=== PATIENT | male | born 1965 | race Caucasian/White ===

== ENCOUNTER 2017-05-11 17:27 | Emergency (ER) | payer BC ==
[2017-05-11 18:03] LABS: Hematocrit 30.5 % (42.0-52.0); Hemoglobin 9.9 gm/dL (13.5-18.0); Mean Cell Volume 81.6 fl (78-100); Mean Corpuscular Hemoglobin 26.5 pg (27-31); Mean Corpuscular Hgb Conc 32.5 g/dl (32-36); Mean Platelet Volume 9.7 fl (6.0-9.5); Neutrophil # 2.9 K/mm3 (1.3-6.0); Neutrophil % 67.7 % (42-75.0); Platelet Count 168 K/mm3 (150-450); Red Blood Count 3.74 M/mm3 (4.7-6.0); Red Cell Distribution Width 19.5 % (11.5-14.0); White Blood Count 4.2 K/mm3 (4.0-10.5)
[2017-05-11 18:10] LABS: Urine Appearance Clear; Urine Bilirubin Negative (NEGATIVE); Urine Blood Negative /ul (NEGATIVE); Urine Color Yellow; Urine Ketone Negative (NEGATIVE); Urine Protein Negative (NEGATIVE); Urine Specific Gravity 1.005 SP.GR. (1.005-1.030)
[2017-05-11 18:11] LABS: Urine Bacteria None Seen; Urine Nitrite Negative (NEGATIVE); Urine RBC None Seen /hpf (0-5); Urine Urobilinogen Normal (NORMAL); Urine WBC 0-5 /hpf (0-5)
[2017-05-11 18:15] LABS: Albumin * 3.1 gm/dl (3.4-5.0); Anion Gap 13.3 mmol/L (6.8-13.8); BUN/Creatinine Ratio 6.1 (9.0-21.6); Ca. Corrected For Albumin 8.7 mg/dL (8.4-10.2); Calcium * 8.3 mg/dL (7.9-10.9); Carbon Dioxide 30.8 mmol/L (24-32.6)
[2017-05-11 18:35] LABS: Potassium 2.1 mmol/L (3.4-4.6)
[2017-05-11] MEDS ORDERED: NORMAL SALINE 1,000 ML IV ONE (18:53)
[2017-05-11] MEDS ORDERED: POTASSIUM BICARBONATE/CIT AC 25 MEQ TABLET.EFF PO ONE ×2 (18:58→19:29)
[2017-05-11] MEDS ORDERED: POTASSIUM BICARBONATE/CIT AC 25 MEQ TABLET.EFF ONE ×2 (19:05→19:30)
[2017-05-11 19:15] LABS: Magnesium 1.1 mg/dL (1.2-2.8); Phosphorus 2.7 mg/dL (2.2-4.2)
[2017-05-11] MEDS ORDERED: diphenhydrAMINE HCL 50 MG/ML VIAL IV ONE (19:31)
[2017-05-11] MEDS ORDERED: diphenhydrAMINE HCL 50 MG/ML VIAL ONE (19:32)
--- NOTE | 2017-05-11 21:26 | ERNOTE ---
Abdominal HPI - Narrative Date of Service: 05/11/17 - General Chief Complaint: Abdominal Pain Time Seen by Provider: 05/11/17 18:27 Source: patient, family Exam Limitations: no limitations - Immun/Allergies/Home Medications Immunizatons: IMMUNIZATION HX Immunizations Up to Date Yes History of Influenza Vaccine No Hx Pneumococcal Vaccination No Allergies/Adverse Reactions: Allergies amlodipine Allergy (Intermediate, Verified 05/11/17 17:45) Retained water and bruising Home Medications: HOME MEDICATIONS Aspirin [Aspirin Enteric Coated] 81 mg PO DAILY 07/08/13 [Last Taken Unknown] Chlorthalidone [Hygroton] 25 mg PO DAILY 08/06/15 [Last Taken Unknown] Potassium Chloride [Klor-Con M10] 10 meq PO DAILY 08/07/15 [Last Taken Unknown] Acetaminophen [Tylenol] 500 mg PO QID PRN #30 tablet 08/11/15 [Last Taken Unknown] Pantoprazole Sodium [Protonix] 40 mg PO DAILY@0700 #30 tablet. 08/11/15 [Last Taken Unknown] Potassium Chloride [Potassium Chloride 40 meq/15ml Liquid] 20 meq PO DAILY #7.5 btl 05/11/17 [Last Taken Unknown] - Pain Score Pain Score #1 Pain Score: 7 Abdominal Pain Onset Location: generalized abdomen Pain Radiation: no radiation Pain Score #2 Pain Score: 0 - History of Present Illness Narrative: Patient is a 52 year old male who presents to ED with complaints of constant pain across abdomen without radiation since earlier this morning. States he awoke fine and went to work. States about 0830 ate some eggs for lunch and after eating began to experience "gas like" pain across lower abdomen. States he vomited x 1. Also complains of back pain x 2 weeks and muscle cramps especially leg and back cramps since . Also states he feels more fatigued since . Denies fever, chills. Admits to chronic alcohol abuse , states he drinks a gallon of vodka every 4 days. states that he has chronic low potassium and has been prescribed Potassium pills in which the states "the entire, undissolved pill comes out in his stool". Monitor reading NSR Date (Duration): 05/08/17 Timing: constant, getting worse Quality: moderate Activities at Onset: none Modifying Factors - (Improves): Present: rest Modifying Factors - (Worsens): Present: movement Associated Symptoms: Present: back pain, nausea, vomiting, loss of appetite. Absent: headache, chest pain, neck pain, diaphoresis, diarrhea-gross blood, diarrhea-mucous, fatigue, fever/chills, heartburn, shortness of breath, swelling /mass in abdomen Prior Abdominal Problems: Present: none Review of Systems - Review of Systems Constitutional: Present: no symptoms reported. Absent: recent illness, fever, chills, diaphoresis, weakness, fatigue, malaise, weight loss, fussy, decreased activity level EYE: Present: no symptoms reported. Absent: eye pain, eye discharge, blurred vision, double vision, vision changes ENT: Present: no symptoms reported. Absent: ear pain, ear discharge, pulling on ears, nose pain, nose congestion, nasal drainage, sore throat, throat swelling Respiratory: Present: no symptoms reported. Absent: shortness of breath, cough , orthopnea, wheezing Cardiology: Present: no symptoms reported. Absent: chest pain, palpitations, syncope, edema, claudication Gastrointestinal/Abdominal: Present: nausea, vomiting, abdominal pain, eating less, drinking less. Absent: diarrhea Genitourinary: Present: no symptoms reported Musculoskeletal: Present: back pain, muscle pain. Absent: muscle stiffness, neck pain Skin: Present: no symptoms reported Neurological: Present: no symptoms reported Endocrine: Present: no symptoms reported Hematologic/Lymphatic: Present: no symptoms reported - Patient's Past Medical History Patient History - Medical: Anxiety, Depression, Other Patient History - Cardiac/Respiratory: Hypertension Patient History - Cancer: No Hx of Cancer Patient History - Surgical Procedures: Other Patient History - Other: None - Family History Father Family History - Medical: Other Family History - Cardiac/Respiratory: Hypertension Mother Family History - Medical: No pertinent hx Family History - Cardiac/Respiratory: No pertinent hx - Social History Living Situations: home Abuse History: No History of abuse Psych History: Hx of Anxiety, Hx of Depression Alcohol Use: heavy Drug Use: none - Immunizations Immunizations Up to Date: Yes Hx Pneumococcal Vaccination: No History of Influenza Vaccine: No Physical Exam - Physical Exam General Appearance: Present: wd/wn, alert, no apparent distress Head Exam: Present: normal inspection, no evidence of injury Eye Exam: Normal inspection: bilateral, PERRL: bilateral, EOMI: bilateral Ears, Nose, Throat: Present: normal ENT inspection, normal pharynx. Absent: pharyngeal erythema, pharyngeal swelling, tonsillar exudate, tonsillar swelling , dry mucous membranes Neck: Present: normal inspection, nontender, supple, full range of motion. Absent: lymphadenopathy (R), lymphadenopathy (L) Respiratory: Present: no respiratory distress, normal breath sounds, no accessory muscle use, chest nontender, lungs clear Cardiovascular/Chest: Present: regular rate, rhythm, no murmur, normal peripheral pulses Peripheral Pulses: N=norm/S=strong/W=weak/B=bound/A=absent: Radial (R): Normal, Radial (L): Normal Gastrointestinal/Abdominal: Present: normal bowel sounds, nondistended, soft, no organomegaly, other - tender across lower abdomen Rectal Exam: Present: deferred Male Genitals Exam: Present: deferred Back Exam: Present: normal inspection, normal range of motion, no CVA tenderness , vertebral tenderness Extremity Exam: Present: normal inspection, non-tender, normal range of motion, no edema Neurological Exam: Present: alert, oriented, normal mood/affect, no motor/ sensory deficits Skin Exam: Present: normal color, warm/dry Lymphatic Exam: Present: no adenopathy ED Progress - Results and Orders Patient's Lab Results:: I have reviewed the patient's lab results. - Vital Signs Patient's Vital Signs:: I have reviewed the patient's vital signs. Vital Signs: Vital Signs 05/11/17 05/11/17 05/11/17 17:42 18:18 18:40 Temperature 36.8 C Pulse Rate 95 90 94 Respiratory 18 16 20 Rate Blood Pressure 155/103 151/93 161/105 O2 Sat by Pulse 97 98 98 Oximetry 05/11/17 05/11/17 05/11/17 19:11 19:36 20:12 Temperature Pulse Rate 95 95 92 Respiratory 18 20 20 Rate Blood Pressure 145/100 149/98 141/92 O2 Sat by Pulse 97 97 98 Oximetry 05/11/17 20:53 Temperature 36.9 C Pulse Rate 89 Respiratory 18 Rate Blood Pressure 139/90 O2 Sat by Pulse 96 Oximetry - EKG EKG: NSR EKG read: Reviewed by me - X-Ray X-Ray #1 X-Ray: abdomen Interpretation: Reviewed by me X-ray Comments: Findings: Mild stool is within the realm of normal variability. There are no air-filled dilated loops of bowel suggest obstruction. No free air identified. There is a mild dextroscoliosis to the lumbar spine. IMPRESSION: NO ACUTE ABDOMINAL PATHOLOGY IDENTIFIED. Electronically signed by Marcial Grissom M.D.. - Progress/Reassessment Chief Complaint: Abdominal Pain Progress:: Improved Departure - Departure Clinical Impression: Hypokalemia Nausea & vomiting Qualifiers: Vomiting type: unspecified Vomiting Intractability: unspecified Qualified Code( s): R11.2 - Nausea with vomiting, unspecified Disposition: Home Follow Up Needed Condition: Good Instructions: Nausea, Adult, Hypokalemia, Alcohol Abuse and Nutrition Additional Instructions: Please call primary provider's office tomorrow morning to update office of Potassium level of 2.1 in ED. Stop Potassium tablets and take potassium liquid instead Prescriptions: Potassium Chloride [Potassium Chloride 40 meq/15ml Liquid] 20 meq PO DAILY #7.5 btl
[2017-05-11 21:35] VITALS: BP 124/90
== END 2017-05-11 21:34 | disposition home or self-care (01) ==
LOC: ER 17:27
DX: E87.6 Hypokalemia (principal); R11.2 Nausea with vomiting, unspecified; I10 Essential (primary) hypertension; F41.8 Other specified anxiety disorders

== ENCOUNTER 2019-11-05 03:39 | Inpatient (IN) ==
--- NOTE | 2019-11-05 04:21 | ERNOTE ---
Abdominal HPI - General Chief Complaint: Abdominal Pain Time Seen by Provider: 11/05/19 04:05 Source: patient Exam Limitations: no limitations - Immun/Allergies/Home Medications Immunizatons: IMMUNIZATION HX Immunizations Up to Date Yes History of Influenza Vaccine No Hx Pneumococcal Vaccination No Allergies/Adverse Reactions: Allergies amlodipine Allergy (Intermediate, Verified 06/04/18 04:02) Retained water and bruising Home Medications: HOME MEDICATIONS Omeprazole Magnesium [Prilosec Otc] 20 mg PO DAILY 11/05/19 [Last Taken Unknown] - History of Present Illness Narrative: Patient states he has been getting more and more sick over the past couple of weeks with abdominal pain and distention. Patient admits to drinking up to 1/5 of vodka daily Timing: getting worse Quality: moderate, severe, fullness Review of Systems - Review of Systems Constitutional: Present: fatigue. Absent: recent illness, fever, chills EYE: Absent: vision changes ENT: Present: nose congestion, nasal drainage Respiratory: Present: cough. Absent: shortness of breath Cardiology: Absent: chest pain Gastrointestinal/Abdominal: Present: nausea, eating less, other - black stools. Absent: vomiting, diarrhea Genitourinary: Present: other - orange colored urine for about 2 weeks Musculoskeletal: Absent: muscle pain Skin: Present: change in color Neurological: Present: headache, dizziness/light-headedness Endocrine: Absent: excessive sweating Hematologic/Lymphatic: Absent: easy bruising, easy bleeding Medical History (Last Reviewed 11/05/19 @ 06:48 by Choco Christianson DO) HTN (hypertension) Hypokalemia Surgical History: Surgical History (Last Reviewed 11/05/19 @ 06:48 by Choco Christianson DO) No pertinent past surgical history Social History: (Last Reviewed 11/05/19 @ 06:48 by Choco Christianson DO) Tobacco: Smoking Status: Current every day smoker tobacco type: cigarettes Smoking cigarettes per day: 10 Alcohol: alcohol intake: current Alcohol type: hard liquor alcohol intake frequency: 3 or more drinks per day Substance Use: substance use type: does not use Physical Exam - Physical Exam General Appearance: Present: wd/wn, alert, mild distress - and mildly somnolent Head Exam: Present: normal inspection, no evidence of injury Eye Exam: PERRL: bilateral, Scleral icterus: bilateral Ears, Nose, Throat: Present: normal ENT inspection, normal pharynx Neck: Present: normal inspection, nontender Respiratory: Present: no respiratory distress, no accessory muscle use, lungs clear Cardiovascular/Chest: Present: regular rate, rhythm, no murmur Gastrointestinal/Abdominal: Present: tenderness - Diffuse, abnormal bowel sounds - Hypoactive, distended - Mildly. Absent: guarding, rebound Back Exam: Present: no CVA tenderness Extremity Exam: Present: normal inspection, normal range of motion, no edema Neurological Exam: Present: oriented, normal mood/affect, no motor/sensory deficits Skin Exam: Present: jaundice Lymphatic Exam: Present: no adenopathy Progress - Results and Orders Patient's Lab Results:: I have reviewed the patient's lab results. Results and Orders: Laboratory Tests 11/05/19 11/05/19 11/05/19 04:45 04:45 04:50 WBC 8.4 Hgb 9.2 L Hct 27.3 L Plt Count 191 PT INR (Anticoag Therapy) PTT ([place]) Sodium Potassium Chloride Carbon Dioxide Anion Gap BUN Creatinine Random Glucose Calcium Total Bilirubin AST ALT Alkaline Phosphatase Ammonia Total Protein Albumin Amylase Lipase Urine Color Dark yellow Urine Appearance Slightly cloudy Urine pH 5.5 Ur Specific [place] 1.025 Urine Protein 30 H Urine Glucose (UA) Negative Urine Ketones 15 Urine Blood 5 H Urine Nitrate Negative Urine Bilirubin 6 H Urine Ictotest Positive H Prot Sulfosalicylic Acd 1+ Urine Urobilinogen 2.0 H Ur Leukocyte Esterase Negative Stool Occult Blood Positive H 11/05/19 11/05/19 11/05/19 04:50 04:50 04:50 WBC Hgb Hct Plt Count PT 11.7 H INR (Anticoag Therapy) 1.19 H PTT ([place]) 24.6 Sodium 133 Potassium 2.7 L Chloride 83 L Carbon Dioxide 20.8 L Anion Gap 31.9 H BUN 26 H Creatinine 1.51 H Random Glucose 89 Calcium 8.0 Total Bilirubin 6.5 H AST 449 H ALT 102 H Alkaline Phosphatase 315 H Ammonia 29.0 Total Protein 6.0 L Albumin 2.4 L Amylase 33 Lipase 353 Urine Color Urine Appearance Urine pH Ur Specific [place] Urine Protein Urine Glucose (UA) Urine Ketones Urine Blood Urine Nitrate Urine Bilirubin Urine Ictotest Prot Sulfosalicylic Acd Urine Urobilinogen Ur Leukocyte Esterase Stool Occult Blood - Vital Signs Patient's Vital Signs:: I have reviewed the patient's vital signs. Vital Signs: Vital Signs 11/05/19 03:53 Temperature 36.8 C Respiratory Rate 108 H Blood Pressure 133/90 H O2 Sat by Pulse Oximetry 99 - X-Ray X-Ray #1 X-Ray: abdomen Interpretation: Interp. by me X-ray Comments: Mild to moderate stool retention. No free air, no air-fluid levels no evidence of obstruction. - Progress/Reassessment Chief Complaint: Abdominal Pain Progress Note-Subjective: 11/05/19 06:[address] Mcgraw and she agrees with admission and protonix drip. Departure Clinical Impression: Alcoholic liver disease Gastrointestinal bleed Qualifiers: GI bleed type/associated pathology: gastritis Gastritis type: alcoholic Qualified Code(s): K29.21 - Alcoholic gastritis with bleeding Anemia Qualifiers: Anemia type: other cause Other causes of anemia: acute posthemorrhagic Qualified Code(s): D62 - Acute posthemorrhagic anemia - Departure Disposition: Still a patient Condition: Stable
[2019-11-05 04:54] LABS: Hematocrit 27.3 % (42.0-52.0); Hemoglobin 9.2 gm/dL (13.5-18.0); Mean Cell Volume 113.8 fl (78-100); Mean Corpuscular Hemoglobin 38.3 pg (27-31); Mean Corpuscular Hgb Conc 33.7 g/dl (32-36); Mean Platelet Volume 10.9 fl (8-11.3); Neutrophil # 6.2 K/mm3 (1.3-6.0); Neutrophil % 73.8 % (42-75.0); Platelet Count 191 K/mm3 (150-450); Red Cell Distribution Width 17.9 % (11.5-14.0); White Blood Count 8.4 K/mm3 (4.0-10.5)
[2019-11-05 04:55] LABS: Urine Bilirubin 6 mg/dl (NEGATIVE); Urine Ketone 15 mg/dL (NEGATIVE); Urine Nitrite Negative (NEGATIVE); Urine Protein 30 mg/dL (NEGATIVE); Urine Specific Gravity 1.025 SP.GR. (1.005-1.030); Urine pH 5.5 pH (5.0-7.0)
[2019-11-05 05:04] LABS: Prothrombin Time (Patient) 11.7 Seconds (9.1-10.7)
[2019-11-05 05:07] LABS: INR 1.19 INR (0.92-1.08); Partial Thrombolplastin Time 24.6 Seconds (24-32)
[2019-11-05 05:08] LABS: Albumin * 2.4 gm/dl (3.4-5.0); Anion Gap 31.9 mmol/L (6.8-13.8); BUN/Creatinine Ratio 17.2 (9.0-21.6); Bilirubin, Total 6.5 mg/dL (0.0-1.1); Carbon Dioxide 20.8 mmol/L (24-32.6); Potassium 2.7 mmol/L (3.4-4.6)
[2019-11-05 05:22] LABS: Urine Appearance Slightly Cloudy (CLEAR); Urine Bacteria TRACE; Urine Blood 5 /ul (NEGATIVE); Urine Color Dark Yellow; Urine RBC None Seen /hpf (0-5); Urine WBC None Seen /hpf (0-5)
[2019-11-05] MEDS ORDERED: LORazepam 1 MG TABLET PO PRN (07:04)
[2019-11-05] MEDS ORDERED: LORazepam 2 MG/ML DISP.SYRIN IV PRN ×2 (07:04)
[2019-11-05] MEDS ORDERED: THIAMINE HCL 100 MG/ML VIAL IM STA (07:04)
[2019-11-05] MEDS ORDERED: MULTIVIT INFUSN,ADULT 4,VIT K 10 ML, THIAMINE HCL 100 MG in NORMAL SALINE 1,000 ML IV ONE (07:04)
[2019-11-05] MEDS ORDERED: ENOXAPARIN SODIUM 40 MG/0.4 ML SYRG SC SCH (07:15)
[2019-11-05 07:49] LABS: Hematocrit 25.6 % (42.0-52.0); Hemoglobin 8.5 gm/dL (13.5-18.0); Mean Cell Volume 113.8 fl (78-100); Mean Corpuscular Hemoglobin 37.8 pg (27-31); Mean Corpuscular Hgb Conc 33.2 g/dl (32-36); Mean Platelet Volume 11.2 fl (8-11.3); Neutrophil % 77.4 % (42-75.0); Platelet Count 173 K/mm3 (150-450); Red Blood Count 2.25 M/mm3 (4.7-6.0); White Blood Count 7.7 K/mm3 (4.0-10.5)
[2019-11-05 07:58] LABS: Albumin * 2.2 gm/dl (3.4-5.0); Anion Gap 38.2 mmol/L (6.8-13.8); BUN/Creatinine Ratio 15.9 (9.0-21.6); Bilirubin, Total 6.2 mg/dL (0.0-1.1); Calcium * 7.9 mg/dL (7.9-10.9); Carbon Dioxide 15.7 mmol/L (24-32.6); Magnesium 1.5 mg/dL (1.2-2.8); Potassium 2.9 mmol/L (3.4-4.6); Total Protein 5.7 gm/dL (6.2-8.2)
[2019-11-05] MEDS: PANTOPRAZOLE SODIUM 40 MG in NORMAL SALINE 100 ML IV SCH ×4 (08:17→22:23)
[2019-11-05] MEDS: FOLIC ACID 1 MG TABLET PO SCH (08:51)
[2019-11-05] MEDS: LORazepam 1 MG TABLET PO SCH ×3 (08:58→18:57)
--- NOTE | 2019-11-05 09:32 | HP ---
Chief Complaint - Chief Complaint Date of Service: 11/05/19 Time of Service: 09:31 Chief Complaint: Abdominal pain History of Present Illness: 54 y.o M with Past Medical History of Hypotension, Hypokalemia, Alcohol liver disease, Pancreatitis, Anemia, MDD & WALT admitted for abdominal pain progressively getting worse. , Christine is at bedside and is the historian. States patient stomach has become more firm, with dark stools for a couple of days, associated with dizziness. His PCP is Dr. Lynch and has not seen him in over a year, and is looking for a new PCP. Patient states its too far of a drive to [place]. Patient is still drinking about 1 pint per day and smokes 1PPD. Patient is not on any medication for alcohol liver disease and he does not know why. On arrival to ER he has been tachycardic and tachypneic, remaining VSS are normal. Labs were significant for macrocytic anemia with hgb lowest of 8.5, hyokalemia, increased anion gap, elevated BUN, bilirubin and Cr. Transamnitis (ast &alt) 449 and 102 respectively. ALP of 319. Low albumin of 2.2, tp OF 5.7, stool occult positive with Ethyl Alcohol of 112.0 H. KUB showed non specific gas pattern and US of abdomen showed small amount of fluid inperitoneal cavity. Discussed management with as patient seems to be lethargic. Voiced understanding. Medical History (Last Reviewed 11/05/19 @ 07:10 by Kiki Nevarez RN) HTN (hypertension) Hypokalemia Surgical History: Surgical History (Last Reviewed 11/05/19 @ 07:10 by Kiki Nevarez RN) No pertinent past surgical history Family History: Family History (Last Updated 11/05/19 @ 07:11 by Kiki Nevarez RN) Mother Breast cancer Father Hypertension Social History: (Last Reviewed 11/05/19 @ 07:11 by Kiki Nevarez RN) Tobacco: Smoking Status: Current every day smoker tobacco type: cigarettes Smoking cigarettes per day: 10 Alcohol: alcohol intake: current Alcohol type: hard liquor alcohol intake frequency: 3 or more drinks per day Substance Use: substance use type: does not use Review Of Systems (GEN) - Review of Systems Generalized/Overall Review: Present: Weakness, Malaise, Fatigue. Absent: Chills Respiratory: Present: Wheezing. Absent: Cough, Shortness of Breath Cardiac: Absent: Chest Pain, Edema, Palpitations, Syncope Abdominal: Present: Nausea, Abdominal Pain. Absent: Vomiting, Constipation Genitourinary: Absent: Burning, Itching, Urgency, Frequency Musculoskeletal: Absent: Joint Pain, Back Pain Neurological: Present: Depressed, Weakness Skin: Present: Dryness Immunizations: IMMUNIZATION HX Immunizations Up to Date Yes History of Influenza Vaccine No Hx Pneumococcal Vaccination No Allergies/Adverse Reactions: Allergies Allergy/AdvReac Type Severity Reaction Status Date / Time amlodipine Allergy Severe Verified 11/05/19 07:12 Home Medications: HOME MEDICATIONS Omeprazole Magnesium [Prilosec Otc] 20 mg PO DAILY 11/05/19 [Last Taken 11/04/19] Exam - Exam Vital Signs: Vital Signs - Last Taken Temp 36.6 C 11/05/19 07:12 Pulse 113 H 11/05/19 07:12 Resp 17 11/05/19 07:12 BP 120/73 11/05/19 07:12 Pulse Ox 98 11/05/19 07:12 Constitutional: Present: Alert, Oriented x3, Mild distress, Lethargic, Looks Older than stated age ENT Exam: Present: hearing grossly normal Eye Exam: bilateral eye: normal inspection, PERRL, EOMI, scleral icterus Neck: Present: non-tender, full range of motion, supple Respiratory: Present: no respiratory distress, no accessory muscle use, wheezing - expiratory wheezing of Lower lobes BL. Absent: crackles, rales Peripheral Pulses: dorsalis-pedis (R): 2+, dorsalis-pedis (L): 2+ Abdomen: Present: Normal bowel sounds, guarding, firm, distended Extremity: Present: normal inspection, no pedal edema Skin Exam: Present: jaundice Neurologic: Present: alert, oriented x 3, depressed affect, dizzy/light-heade dness Appearance: Present: disheveled Eye contact: Present: decreased rate of speech Diagnostic Studies: Abnormal Lab Results 11/05/19 11/05/19 11/05/19 Range/Units 04:45 04:45 04:50 RBC 2.40 L (4.7-6.0) M/mm3 Hgb 9.2 L (13.5-18.0) gm/dL Hct 27.3 L (42.0-52.0) % MCV 113.8 H (78-100) fl MCH 38.3 H (27-31) pg RDW 17.9 H (11.5-14.0) % Immature Gran % (Auto) 1.30 H (0.001-0.429) % Immature Gran # (Auto) 0.11 H (0.000-0.0310) K/mm3 Neutrophils % (42-75.0) % Lymphocytes % 14.1 L (20-51) % Monocytes % 10.2 H (0.0-9) % Neutrophils # 6.2 H (1.3-6.0) K/mm3 Lymphocytes # 1.18 L (1.5-3.5) k/mm3 PT (9.1-10.7) Seconds INR (Anticoag Therapy) (0.92-1.08) INR Potassium (3.4-4.6) mmol/L Chloride (97-106) mmol/L Carbon Dioxide (24-32.6) mmol/L Anion Gap (6.8-13.8) mmol/L BUN (6-23) mg/dL Creatinine (0.4-1.4) mg/dL Est GFR (Non-Af Amer) (60-130) mL/min Total Bilirubin (0.0-1.1) mg/dL AST (0-48) U/L ALT (19-67) U/L Alkaline Phosphatase (50-170) U/L Total Protein (6.2-8.2) gm/dL Albumin (3.4-5.0) gm/dl Urine Protein 30 H (NEGATIVE) mg/dL Urine Blood 5 H (NEGATIVE) /ul Urine Bilirubin 6 H (NEGATIVE) mg/dl Urine Ictotest Positive H (NEGATIVE) Urine Urobilinogen 2.0 H (NORMAL) EU/dl Stool Occult Blood Positive H Ethyl Alcohol (0.0-10.0) mg/dL 11/05/19 11/05/19 11/05/19 Range/Units 04:50 04:50 07:35 RBC 2.25 L (4.7-6.0) M/mm3 Hgb 8.5 L (13.5-18.0) gm/dL Hct 25.6 L (42.0-52.0) % MCV 113.8 H (78-100) fl MCH 37.8 H (27-31) pg RDW 18.0 H (11.5-14.0) % Immature Gran % (Auto) 1.90 H (0.001-0.429) % Immature Gran # (Auto) 0.15 H (0.000-0.0310) K/mm3 Neutrophils % 77.4 H (42-75.0) % Lymphocytes % 11.0 L (20-51) % Monocytes % 9.2 H (0.0-9) % Neutrophils # (1.3-6.0) K/mm3 Lymphocytes # 0.85 L (1.5-3.5) k/mm3 PT 11.7 H (9.1-10.7) Seconds INR (Anticoag Therapy) 1.19 H (0.92-1.08) INR Potassium 2.7 L (3.4-4.6) mmol/L Chloride 83 L (97-106) mmol/L Carbon Dioxide 20.8 L (24-32.6) mmol/L Anion Gap 31.9 H (6.8-13.8) mmol/L BUN 26 H (6-23) mg/dL Creatinine 1.51 H (0.4-1.4) mg/dL Est GFR (Non-Af Amer) 51 L D (60-130) mL/min Total Bilirubin 6.5 H (0.0-1.1) mg/dL AST 449 H (0-48) U/L ALT 102 H (19-67) U/L Alkaline Phosphatase 315 H (50-170) U/L Total Protein 6.0 L (6.2-8.2) gm/dL Albumin 2.4 L (3.4-5.0) gm/dl Urine Protein (NEGATIVE) mg/dL Urine Blood (NEGATIVE) /ul Urine Bilirubin (NEGATIVE) mg/dl Urine Ictotest (NEGATIVE) Urine Urobilinogen (NORMAL) EU/dl Stool Occult Blood Ethyl Alcohol (0.0-10.0) mg/dL 11/05/19 Range/Units 07:35 RBC (4.7-6.0) M/mm3 Hgb (13.5-18.0) gm/dL Hct (42.0-52.0) % MCV (78-100) fl MCH (27-31) pg RDW (11.5-14.0) % Immature Gran % (Auto) (0.001-0.429) % Immature Gran # (Auto) (0.000-0.0310) K/mm3 Neutrophils % (42-75.0) % Lymphocytes % (20-51) % Monocytes % (0.0-9) % Neutrophils # (1.3-6.0) K/mm3 Lymphocytes # (1.5-3.5) k/mm3 PT (9.1-10.7) Seconds INR (Anticoag Therapy) (0.92-1.08) INR Potassium 2.9 L (3.4-4.6) mmol/L Chloride 82 L (97-106) mmol/L Carbon Dioxide 15.7 L (24-32.6) mmol/L Anion Gap 38.2 H (6.8-13.8) mmol/L BUN 27 H (6-23) mg/dL Creatinine 1.70 H (0.4-1.4) mg/dL Est GFR (Non-Af Amer) 45 L (60-130) mL/min Total Bilirubin 6.2 H (0.0-1.1) mg/dL AST 428 H (0-48) U/L ALT 97 H (19-67) U/L Alkaline Phosphatase 285 H (50-170) U/L Total Protein 5.7 L (6.2-8.2) gm/dL Albumin 2.2 L (3.4-5.0) gm/dl Urine Protein (NEGATIVE) mg/dL Urine Blood (NEGATIVE) /ul Urine Bilirubin (NEGATIVE) mg/dl Urine Ictotest (NEGATIVE) Urine Urobilinogen (NORMAL) EU/dl Stool Occult Blood Ethyl Alcohol 112.0 H (0.0-10.0) mg/dL Laboratory Results WBC 7.7 K/mm3 (4.0-10.5) 11/05/19 07:35 RBC 2.25 M/mm3 (4.7-6.0) L 11/05/19 07:35 Hgb 8.5 gm/dL (13.5-18.0) L 11/05/19 07:35 Hct 25.6 % (42.0-52.0) L 11/05/19 07:35 MCV 113.8 fl (78-100) H 11/05/19 07:35 MCH 37.8 pg (27-31) H 11/05/19 07:35 MCHC 33.2 g/dl (32-36) 11/05/19 07:35 RDW 18.0 % (11.5-14.0) H 11/05/19 07:35 Plt Count 173 K/mm3 (150-450) 11/05/19 07:35 MPV 11.2 fl (8-11.3) 11/05/19 07:35 Immature Gran % (Auto) 1.90 % (0.001-0.429) H 11/05/19 07:35 Immature Gran # (Auto) 0.15 K/mm3 (0.000-0.0310) H 11/05/19 07:35 Neutrophils % 77.4 % (42-75.0) H 11/05/19 07:35 Lymphocytes % 11.0 % (20-51) L 11/05/19 07:35 Monocytes % 9.2 % (0.0-9) H 11/05/19 07:35 Eosinophils % 0.1 % (0.0-3.0) 11/05/19 07:35 Basophils % 0.4 % (0.0-1.0) 11/05/19 07:35 Nucleated RBC % 0.0 k/mm3 (0-1) 11/05/19 07:35 Neutrophils # 6.0 K/mm3 (1.3-6.0) 11/05/19 07:35 Lymphocytes # 0.85 k/mm3 (1.5-3.5) L 11/05/19 07:35 Monocytes # 0.7 k/mm3 (0.0-1.0) 11/05/19 07:35 Eosinophils # 0.0 k/mm3 (0.0-0.7) 11/05/19 07:35 Absolute Basophils 0.0 k/mm3 (0.0-0.1) 11/05/19 07:35 PT 11.7 Seconds (9.1-10.7) H 11/05/19 04:50 INR (Anticoag Therapy) 1.19 INR (0.92-1.08) H 11/05/19 04:50 PTT (Anthony) 24.6 Seconds (24-32) 11/05/19 04:50 Sodium 133 mmol/L (132-142) 11/05/19 07:35 Plasma Sodium 133 mmol/L (130-142) 11/05/19 07:35 Potassium 2.9 mmol/L (3.4-4.6) L 11/05/19 07:35 Chloride 82 mmol/L (97-106) L 11/05/19 07:35 Carbon Dioxide 15.7 mmol/L (24-32.6) L 11/05/19 07:35 Anion Gap 38.2 mmol/L (6.8-13.8) H 11/05/19 07:35 BUN 27 mg/dL (6-23) H 11/05/19 07:35 Creatinine 1.70 mg/dL (0.4-1.4) H 11/05/19 07:35 Est GFR (Non-Af Amer) 45 mL/min (60-130) L 11/05/19 07:35 BUN/Creatinine Ratio 15.9 (9.0-21.6) 11/05/19 07:35 Random Glucose 95 mg/dL (70-110) 11/05/19 07:35 Calcium 7.9 mg/dL (7.9-10.9) 11/05/19 07:35 Calcium Adj for Albumin 9.0 mg/dL (8.4-10.2) 11/05/19 07:35 Magnesium 1.5 mg/dL (1.2-2.8) 11/05/19 07:35 Total Bilirubin 6.2 mg/dL (0.0-1.1) H 11/05/19 07:35 AST 428 U/L (0-48) H 11/05/19 07:35 ALT 97 U/L (19-67) H 11/05/19 07:35 Alkaline Phosphatase 285 U/L (50-170) H 11/05/19 07:35 Ammonia 29.0 mcmol/L (11-35) 11/05/19 04:50 Total Protein 5.7 gm/dL (6.2-8.2) L 11/05/19 07:35 Albumin 2.2 gm/dl (3.4-5.0) L 11/05/19 07:35 Amylase 33 U/L (25-115) 11/05/19 04:50 Lipase 353 U/L (73-393) 11/05/19 04:50 Urine Color Dark yellow 11/05/19 04:45 Urine Appearance Slightly cloudy (CLEAR) 11/05/19 04:45 Urine pH 5.5 pH (5.0-7.0) 11/05/19 04:45 Ur Specific [place] 1.025 SP.GR. (1.005-1.030) 11/05/19 04:45 Urine Protein 30 mg/dL (NEGATIVE) H 11/05/19 04:45 Urine Glucose (UA) Negative mg/dL (NEGATIVE) 11/05/19 04:45 Urine Ketones 15 mg/dL (NEGATIVE) 11/05/19 04:45 Urine Blood 5 /ul (NEGATIVE) H 11/05/19 04:45 Urine Nitrate Negative (NEGATIVE) 11/05/19 04:45 Urine Bilirubin 6 mg/dl (NEGATIVE) H 11/05/19 04:45 Urine Ictotest Positive (NEGATIVE) H 11/05/19 04:45 Prot Sulfosalicylic Acd 1+ mg/dL (0) 11/05/19 04:45 Urine Urobilinogen 2.0 EU/dl (NORMAL) H 11/05/19 04:45 Ur Leukocyte Esterase Negative /ul (NEGATIVE) 11/05/19 04:45 Urine RBC None seen /hpf (0-5) 11/05/19 04:45 Urine WBC None seen /hpf (0-5) 11/05/19 04:45 Ur Epithelial Cells 0-5 /hpf (0-5) 11/05/19 04:45 Urine Bacteria Trace (NONE) 11/05/19 04:45 Urine Culture Comments No culture indicated 11/05/19 04:45 Stool Occult Blood Positive H 11/05/19 04:45 Ethyl Alcohol 112.0 mg/dL (0.0-10.0) H 11/05/19 07:35 Assessment/Plan - Narrative Narrative: Assessment/Plan - Gastrointestinal bleed most likely due to upper GI bleed less likely varices * Type and Screen will consider transfusion prior to discharge * Replace Vitamin B12 * Start on protonix and sucralfate * EGD outpatient * - Abdominal Pain concerning for ascites * US of abdomen showed small fluid in the peritoneal cavity * Diagnositc Paracentesis and Analysis of fluid pending - Alcohol Liver Disease with Alcohol Abuse and elevated ETOH level * Alcohol withdrawal protocol * Daily CIWA score * Banana Bag ordered Macrocytic anemia with vitamin B12 deficiency * Vitamin B12 pending Transaminitis * Continue to monitor Hypokalemia * Replete with KCL * Will repeat CMP Tobacco abuse disorder * Nicotine patch FEN: Regular Diet DVT PPX: SCD's CODE STATUS: FULL CODE Disposition: - Await ascitic fluid analysis - Anticipate discharge within 24 hours - Assessment/Plan (1) Macrocytic anemia with vitamin B12 deficiency Problem: Acute (2) Transaminitis Problem: Acute (3) Elevated ETOH level Problem: Acute (4) Hypokalemia Problem: Acute (5) Gastrointestinal bleed Problem: Acute Qualifiers: GI bleed type/associated pathology: gastritis Gastritis type: alcoholic Qualified Code(s): K29.21 - Alcoholic gastritis with bleeding (6) Alcoholic liver disease Problem: Acute (7) Tobacco abuse disorder Problem: Acute (8) Alcohol abuse Problem: Acute
[2019-11-05] MEDS: POTASSIUM CHLORIDE IN WATER 100 ML IV SCH ×4 (10:17→14:35)
[2019-11-05] MEDS: NICOTINE 21 MG PATC TD SCH (10:19)
[2019-11-05 12:13] LABS: Body Fluid WBC 82 /uL (0-1000)
[2019-11-05 12:34] LABS: Total Protein Body Fluid 0.5 mg/dL
[2019-11-05] MEDS: SUCRALFATE 1 G TABLET PO SCH ×2 (13:02→20:41)
[2019-11-05 13:16] LABS: Body Fluid Appearance BLOODY (CLEAR)
[2019-11-05 13:17] LABS: Body Fluid Color RED (COLORLESS)
[2019-11-05] MEDS ORDERED: HYDROmorphone HCL 2 MG/ML VIAL IV PRN (13:58)
[2019-11-05] MEDS ORDERED: ONDANSETRON HCL/PF 2 MG/ML VIAL IV PRN (13:59)
[2019-11-05] MEDS ORDERED: PROMETHAZINE HCL 25 MG TABLET PO PRN (14:00)
[2019-11-05 17:21] LABS: Mean Cell Volume 112.6 fl (78-100); Mean Corpuscular Hemoglobin 38.3 pg (27-31); Mean Corpuscular Hgb Conc 34.1 g/dl (32-36); Mean Platelet Volume 11.2 fl (8-11.3); Neutrophil # 4.8 K/mm3 (1.3-6.0); Neutrophil % 73.9 % (42-75.0); Platelet Count 142 K/mm3 (150-450); Red Blood Count 2.06 M/mm3 (4.7-6.0); Red Cell Distribution Width 17.9 % (11.5-14.0); White Blood Count 6.5 K/mm3 (4.0-10.5)
[2019-11-05 17:32] LABS: Hemoglobin 7.9 gm/dL (13.5-18.0)
[2019-11-05 17:33] LABS: Hematocrit 23.2 % (42.0-52.0)
[2019-11-06 00:53] LABS: Hematocrit 26.4 % (42.0-52.0); Hemoglobin 8.5 gm/dL (13.5-18.0)
[2019-11-06] MEDS: LORazepam 1 MG TABLET PO SCH ×2 (01:30→08:32)
[2019-11-06] MEDS: PANTOPRAZOLE SODIUM 40 MG in NORMAL SALINE 100 ML IV SCH ×2 (03:50→20:36)
[2019-11-06 06:02] LABS: Hematocrit 24.7 % (42.0-52.0); Hemoglobin 8.5 gm/dL (13.5-18.0); Mean Cell Volume 105.6 fl (78-100); Mean Corpuscular Hemoglobin 36.3 pg (27-31); Mean Corpuscular Hgb Conc 34.4 g/dl (32-36); Mean Platelet Volume 11.5 fl (8-11.3); NRBC# 0.1 k/mm3 (0-1); Neutrophil # 3.3 K/mm3 (1.3-6.0); Neutrophil % 70.4 % (42-75.0); Platelet Count 107 K/mm3 (150-450); Red Blood Count 2.34 M/mm3 (4.7-6.0); Red Cell Distribution Width 20.9 % (11.5-14.0); White Blood Count 4.8 K/mm3 (4.0-10.5)
[2019-11-06 06:08] LABS: Prothrombin Time (Patient) 13.1 Seconds (9.1-10.7)
[2019-11-06 06:14] LABS: Albumin * 2.2 gm/dl (3.4-5.0); Anion Gap 11.2 mmol/L (6.8-13.8); Bilirubin, Total 6.9 mg/dL (0.0-1.1); Ca. Corrected For Albumin 8.5 mg/dL (8.4-10.2); Calcium * 7.4 mg/dL (7.9-10.9); Carbon Dioxide 33.9 mmol/L (24-32.6); Total Protein 5.1 gm/dL (6.2-8.2)
[2019-11-06 06:27] LABS: INR 1.34 INR (0.92-1.08)
[2019-11-06 06:39] LABS: Potassium 2.1 mmol/L (3.4-4.6)
[2019-11-06 06:51] LABS: Cocaine Ur Negative (NEGATIVE); Urine Barbiturate Negative (NEGATIVE); Urine Benzodiazepines Negative (NEGATIVE); Urine Opiates Negative (NEGATIVE); Urine PCP Negative (NEGATIVE)
[2019-11-06 06:53] LABS: Urine THC Positive (NEGATIVE)
[2019-11-06] MEDS ORDERED: PROPRANOLOL HCL 10 MG TABLET PO SCH (07:15)
--- NOTE | 2019-11-06 07:44 | PN ---
Subjective - Date and Time Seen Date: 11/06/19 Time: 07:44 Subjective Narrative: No acute events overnight. Patient is resting comfortably. States he is not in pain. He received 4 doses of Ativan overnight along with pain medication and patient is drowsy cannot discuss results with patient. Objective - Review of Systems Generalized/Overall Review: Denies: Weakness, Chills, Fever, Fatigue Respiratory: Denies: Shortness of Breath Cardiac: Denies: Chest Pain, Edema Abdominal: Denies: Abdominal Pain Musculoskeletal Complaints: Denies: Joint Pain, Back Pain Neurological: Denies: Pre-existing Deficit Skin: Reports: Dryness - Vitals Vitals: Last Vital Signs Temp 37.6 C 11/06/19 06:46 Pulse 107 H 11/06/19 06:46 Resp 24 H 11/06/19 06:46 BP 112/69 11/06/19 06:46 Pulse Ox 91 L 11/06/19 06:46 - Abnormal Lab Findings Abnormal Lab Findings: Abnormal Lab Results 11/05/19 11/05/19 11/05/19 Range/Units 07:35 07:35 07:35 RBC 2.25 L (4.7-6.0) M/mm3 Hgb 8.5 L (13.5-18.0) gm/dL Hct 25.6 L (42.0-52.0) % MCV 113.8 H (78-100) fl MCH 37.8 H (27-31) pg RDW 18.0 H (11.5-14.0) % Plt Count (150-450) K/mm3 MPV (8-11.3) fl Immature Gran % (Auto) 1.90 H (0.001-0.429) % Immature Gran # (Auto) 0.15 H (0.000-0.0310) K/mm3 Neutrophils % 77.4 H (42-75.0) % Lymphocytes % 11.0 L (20-51) % Monocytes % 9.2 H (0.0-9) % Lymphocytes # 0.85 L (1.5-3.5) k/mm3 PT (9.1-10.7) Seconds INR (Anticoag Therapy) (0.92-1.08) INR Potassium 2.9 L (3.4-4.6) mmol/L Chloride 82 L (97-106) mmol/L Carbon Dioxide 15.7 L (24-32.6) mmol/L Anion Gap 38.2 H (6.8-13.8) mmol/L BUN 27 H (6-23) mg/dL Creatinine 1.70 H (0.4-1.4) mg/dL Est GFR (Non-Af Amer) 45 L (60-130) mL/min Random Glucose (70-110) mg/dL Calcium (7.9-10.9) mg/dL Total Bilirubin 6.2 H (0.0-1.1) mg/dL AST 428 H (0-48) U/L ALT 97 H (19-67) U/L Alkaline Phosphatase 285 H (50-170) U/L Total Protein 5.7 L (6.2-8.2) gm/dL Albumin 2.2 L (3.4-5.0) gm/dl Vitamin B12 1318 H (193-986) pg/mL Folate (8.6-58.9) ng/mL Fluid RBC (0-1000) /uL Urine Marijuana (THC) (NEGATIVE) Ethyl Alcohol 112.0 H (0.0-10.0) mg/dL Crossmatch 11/05/19 11/05/19 11/05/19 Range/Units 11:25 13:56 17:16 RBC 2.06 L (4.7-6.0) M/mm3 Hgb 7.9 L* (13.5-18.0) gm/dL Hct 23.2 L* (42.0-52.0) % MCV 112.6 H (78-100) fl MCH 38.3 H (27-31) pg RDW 17.9 H (11.5-14.0) % Plt Count 142 L (150-450) K/mm3 MPV (8-11.3) fl Immature Gran % (Auto) 0.90 H (0.001-0.429) % Immature Gran # (Auto) 0.06 H (0.000-0.0310) K/mm3 Neutrophils % (42-75.0) % Lymphocytes % 13.9 L (20-51) % Monocytes % 11.1 H (0.0-9) % Lymphocytes # 0.90 L (1.5-3.5) k/mm3 PT (9.1-10.7) Seconds INR (Anticoag Therapy) (0.92-1.08) INR Potassium (3.4-4.6) mmol/L Chloride (97-106) mmol/L Carbon Dioxide (24-32.6) mmol/L Anion Gap (6.8-13.8) mmol/L BUN (6-23) mg/dL Creatinine (0.4-1.4) mg/dL Est GFR (Non-Af Amer) (60-130) mL/min Random Glucose (70-110) mg/dL Calcium (7.9-10.9) mg/dL Total Bilirubin (0.0-1.1) mg/dL AST (0-48) U/L ALT (19-67) U/L Alkaline Phosphatase (50-170) U/L Total Protein (6.2-8.2) gm/dL Albumin (3.4-5.0) gm/dl Vitamin B12 (193-986) pg/mL Folate 3.4 L (8.6-58.9) ng/mL Fluid RBC Greater than 1000.0 H (0-1000) /uL Urine Marijuana (THC) (NEGATIVE) Ethyl Alcohol (0.0-10.0) mg/dL Crossmatch 11/05/19 11/06/19 11/06/19 Range/Units 18:00 00:50 05:15 RBC (4.7-6.0) M/mm3 Hgb 8.5 L (13.5-18.0) gm/dL Hct 26.4 L (42.0-52.0) % MCV (78-100) fl MCH (27-31) pg RDW (11.5-14.0) % Plt Count (150-450) K/mm3 MPV (8-11.3) fl Immature Gran % (Auto) (0.001-0.429) % Immature Gran # (Auto) (0.000-0.0310) K/mm3 Neutrophils % (42-75.0) % Lymphocytes % (20-51) % Monocytes % (0.0-9) % Lymphocytes # (1.5-3.5) k/mm3 PT (9.1-10.7) Seconds INR (Anticoag Therapy) (0.92-1.08) INR Potassium (3.4-4.6) mmol/L Chloride (97-106) mmol/L Carbon Dioxide (24-32.6) mmol/L Anion Gap (6.8-13.8) mmol/L BUN (6-23) mg/dL Creatinine (0.4-1.4) mg/dL Est GFR (Non-Af Amer) (60-130) mL/min Random Glucose (70-110) mg/dL Calcium (7.9-10.9) mg/dL Total Bilirubin (0.0-1.1) mg/dL AST (0-48) U/L ALT (19-67) U/L Alkaline Phosphatase (50-170) U/L Total Protein (6.2-8.2) gm/dL Albumin (3.4-5.0) gm/dl Vitamin B12 (193-986) pg/mL Folate (8.6-58.9) ng/mL Fluid RBC (0-1000) /uL Urine Marijuana (THC) Positive H (NEGATIVE) Ethyl Alcohol (0.0-10.0) mg/dL Crossmatch See Detail 11/06/19 11/06/19 11/06/19 Range/Units 05:30 05:30 05:30 RBC 2.34 L (4.7-6.0) M/mm3 Hgb 8.5 L (13.5-18.0) gm/dL Hct 24.7 L (42.0-52.0) % MCV 105.6 H (78-100) fl MCH 36.3 H (27-31) pg RDW 20.9 H (11.5-14.0) % Plt Count 107 L (150-450) K/mm3 MPV 11.5 H (8-11.3) fl Immature Gran % (Auto) 0.80 H (0.001-0.429) % Immature Gran # (Auto) 0.04 H (0.000-0.0310) K/mm3 Neutrophils % (42-75.0) % Lymphocytes % 18.5 L (20-51) % Monocytes % 9.5 H (0.0-9) % Lymphocytes # 0.88 L (1.5-3.5) k/mm3 PT 13.1 H (9.1-10.7) Seconds INR (Anticoag Therapy) 1.34 H (0.92-1.08) INR Potassium 2.1 L* D (3.4-4.6) mmol/L Chloride 90 L (97-106) mmol/L Carbon Dioxide 33.9 H (24-32.6) mmol/L Anion Gap (6.8-13.8) mmol/L BUN 37 H (6-23) mg/dL Creatinine 2.31 H D (0.4-1.4) mg/dL Est GFR (Non-Af Amer) 31 L D (60-130) mL/min Random Glucose 133 H D (70-110) mg/dL Calcium 7.4 L (7.9-10.9) mg/dL Total Bilirubin 6.9 H (0.0-1.1) mg/dL AST 513 H (0-48) U/L ALT 104 H (19-67) U/L Alkaline Phosphatase 233 H (50-170) U/L Total Protein 5.1 L (6.2-8.2) gm/dL Albumin 2.2 L (3.4-5.0) gm/dl Vitamin B12 (193-986) pg/mL Folate (8.6-58.9) ng/mL Fluid RBC (0-1000) /uL Urine Marijuana (THC) (NEGATIVE) Ethyl Alcohol (0.0-10.0) mg/dL Crossmatch - EKG/Xray Findings XRAY: chest Interpretation: Reviewed by me - hyperinflation - Exam Constitutional: Present: Somnolent, Looks Older than stated age ENT Exam: Present: hearing grossly normal Neck: Present: normal inspection Respiratory: Present: wheezing - expiratpry wheezing cora upper lobe BL Cardiovascular/Chest: Present: normal peripheral pulses, regular rate, rhythm, no chest tenderness, no edema Abdomen: Present: Normal bowel sounds, distended Extremity: Present: normal inspection, no pedal edema Skin Exam: Present: jaundice Neurologic: Present: other - drowsy Appearance: Present: disheveled Assessment/Plan Plan Narrative: Assessment/Plan - Alcohol Liver Disease with ascites * MELD Score: 30 * Ammonia levels increased to 40, started on lactulose * Started on propranolol for varices * Started on spironolactone * Started on Lasix * S/P diagnostic paracentesis, 2.5 L of fluid removed * Awaiting cultures * Patient received Ativan x 4 doses and most likely why is solmolent. * Ativan was supposed to administered via Alcohol withdrawal protocol. D/C'd Ativan from protocol. Ativan 0.25 mg q12h prn. Patient is not able to clear out medication. * D/C'd Dilaudid -Hypoxia * ABG pending * Patient is hypoxic, started on Oxygen. * Patient is also tachypneic with expiratory wheezing appreciated on PE. * CXR cw hyperinflation. Patient denies previous diagnosis of COPD. * Started on DUO-Neb Q6H * Administered Solumedrol 125 IV x 1. - Suspected Gastrointestinal bleed most likely due to upper GI bleed less likely varices * Type and Screen received 1 unit of blood and hgb improved to 8.5 * Folate deficient * Start on protonix and sucralfate * Labs concerning for continued bleed. CT abd/pelvis ordered to rule out acute abdomen - Alcohol Liver Disease with Alcohol Abuse and elevated ETOH level * Alcohol withdrawal protocol, received 4 dose of Ativan overnight and patient is very drowsy * Daily CIWA score: 0 * Banana Bag 2L administered * Daily Folic and Thiamine ordered Macrocytic anemia with folate deficiency * Folate being replaced Transaminitis * Continue to monitor * CT abdomen/pelvis cw hepatomegaly and fatty liver Hypokalemia * Continue to replete with KCL * Repeat CMP Tobacco abuse disorder * Nicotine patch FEN: NPO, mIVFs DVT PPX: SCD's CODE STATUS: FULL CODE Disposition: - Will continue to monitor - May consider transferring patient for higher level of care if his condition continues to deteriorate - Problems/Diagnosis (1) Gastrointestinal bleed Problem: Acute Qualifiers: GI bleed type/associated pathology: gastritis Gastritis type: alcoholic Qualified Code(s): K29.21 - Alcoholic gastritis with bleeding (2) Alcoholic liver disease Problem: Acute (3) Hypoxia Problem: Acute (4) Transaminitis Problem: Acute (5) Elevated ETOH level Problem: Acute (6) Hypokalemia Problem: Acute (7) Tobacco abuse disorder Problem: Acute (8) Alcohol abuse Problem: Acute (9) Folate deficiency anemia Problem: Acute
[2019-11-06] MEDS: POTASSIUM CHLORIDE IN WATER 100 ML IV SCH ×10 (08:33→22:38)
[2019-11-06] MEDS: SPIRONOLACTONE 25 MG TABLET PO SCH ×2 (08:35→20:27)
[2019-11-06] MEDS: LACTULOSE 10 G/15 ML SYRUP PO SCH ×2 (08:35→20:28)
[2019-11-06] MEDS: FOLIC ACID 1 MG TABLET PO SCH (08:36)
[2019-11-06] MEDS: SUCRALFATE 1 G TABLET PO SCH ×2 (08:36→20:27)
[2019-11-06] MEDS ORDERED: METHYLPREDNISOLONE SOD SUCC/PF 125 MG/2 ML VIAL IV ONE (08:53)
[2019-11-06] MEDS: NICOTINE 21 MG PATC TD SCH (09:43)
[2019-11-06] MEDS ORDERED: NORMAL SALINE 1,000 ML IV ONE (10:38)
[2019-11-06] MEDS ORDERED: MORPHINE SULFATE 4 MG/ML SYRG IV PRN (10:42)
[2019-11-06] MEDS ORDERED: FUROSEMIDE 20 MG TABLET PO SCH (11:00)
[2019-11-06 11:02] LABS: Hematocrit 25.4 % (42.0-52.0); Hemoglobin 8.6 gm/dL (13.5-18.0); Mean Corpuscular Hemoglobin 35.5 pg (27-31); Mean Corpuscular Hgb Conc 33.9 g/dl (32-36); Mean Platelet Volume 11.6 fl (8-11.3); NRBC# 0.1 k/mm3 (0-1); Neutrophil # 3.2 K/mm3 (1.3-6.0); Neutrophil % 73.1 % (42-75.0); Platelet Count 102 K/mm3 (150-450); Red Blood Count 2.42 M/mm3 (4.7-6.0); Red Cell Distribution Width 20.9 % (11.5-14.0); White Blood Count 4.4 K/mm3 (4.0-10.5)
[2019-11-06 11:15] LABS: Albumin * 2.1 gm/dl (3.4-5.0); Anion Gap 10.3 mmol/L (6.8-13.8); BUN/Creatinine Ratio 16.9 (9.0-21.6); Bilirubin, Total 7.2 mg/dL (0.0-1.1); Ca. Corrected For Albumin 8.5 mg/dL (8.4-10.2); Calcium * 7.3 mg/dL (7.9-10.9); Carbon Dioxide 34.3 mmol/L (24-32.6); Potassium 2.6 mmol/L (3.4-4.6); Total Protein 5.1 gm/dL (6.2-8.2)
[2019-11-06] MEDS ORDERED: LABETALOL HCL 5 MG/ML VIAL IV ONE (11:32)
[2019-11-06] MEDS ORDERED: DILTIAZEM HCL 125 MG in DEXTROSE 5 % IN WATER 100 ML IV PRN ×2 (12:37)
[2019-11-06] MEDS: ALBUTEROL SULFATE/IPRATROPIUM 3 ML NEBU IH SCH ×2 (13:17→18:06)
[2019-11-06] MEDS ORDERED: METHYLPREDNISOLONE SOD SUCC/PF 40 MG/ML VIAL IV SCH (13:30)
[2019-11-06] MEDS ORDERED: LORazepam 2 MG/ML DISP.SYRIN IV PRN (15:11)
[2019-11-06] MEDS ORDERED: OCTREOTIDE ACETATE 50 MCG/ML VIAL IV ONE (15:24)
[2019-11-06] MEDS ORDERED: CEFOTAXIME SODIUM 2,000 MG in DEXTROSE 5 % IN WATER 100 ML IV SCH ×2 (15:30)
[2019-11-06] MEDS ORDERED: CIPROFLOXACIN HCL 500 MG TABLET PO ONE (15:30)
[2019-11-06] MEDS ORDERED: ALBUMIN HUMAN 12.5 G/50 ML BTL IV ONE (15:32)
--- NOTE | 2019-11-06 15:39 | PN ---
Progess Note - Interim Date: 11/06/19 Time: 15:35 Narrative: 11/06/19 15:35 Due to worsening altered mental status, increase in creatinine, prophylactically treat for SBP is the setting of possible Upper GI bleed. Ordered Blood and Urine Cultures to rule out other source of infection. Stopped propranolol as this will worsen renal function Start Rocephin and Cipro Start Octreotide Administer Albumin Infusion. Continue to be NPO Will consult Gastroenterology and most likely transfer out for higher level of care.
[2019-11-06] MEDS ORDERED: PHYTONADIONE (VIT K1) 10 MG/ML AMPUL IM ONE (16:05)
[2019-11-06 16:13] LABS: Hematocrit 25.8 % (42.0-52.0); Hemoglobin 8.8 gm/dL (13.5-18.0); Mean Cell Volume 105.7 fl (78-100); Mean Corpuscular Hemoglobin 36.1 pg (27-31); Mean Corpuscular Hgb Conc 34.1 g/dl (32-36); Mean Platelet Volume 11.5 fl (8-11.3); Neutrophil % 87.1 % (42-75.0); Platelet Count 106 K/mm3 (150-450); Red Blood Count 2.44 M/mm3 (4.7-6.0); Red Cell Distribution Width 21.2 % (11.5-14.0); White Blood Count 3.4 K/mm3 (4.0-10.5)
[2019-11-06 16:21] LABS: INR 1.35 INR (0.92-1.08); Prothrombin Time (Patient) 13.2 Seconds (9.1-10.7)
[2019-11-06 16:24] LABS: Anion Gap 11.9 mmol/L (6.8-13.8); BUN/Creatinine Ratio 20.8 (9.0-21.6); Ca. Corrected For Albumin 8.5 mg/dL (8.4-10.2); Calcium * 7.2 mg/dL (7.9-10.9); Potassium 2.9 mmol/L (3.4-4.6); Total Protein 5.2 gm/dL (6.2-8.2)
[2019-11-06] MEDS ORDERED: PHYTONADIONE (VIT K1) 10 MG/ML AMPUL ONE (17:06)
[2019-11-06] MEDS ORDERED: CIPROFLOXACIN HCL 500 MG TABLET ONE (17:12)
[2019-11-06] MEDS: FORMOTEROL FUMARATE 20 MCG/2 ML VIAL IH SCH (18:06)
[2019-11-06] MEDS: BUDESONIDE 0.25 MG/2 ML VIAL.NEB IH SCH (18:06)
[2019-11-06] MEDS ORDERED: FORMOTEROL FUMARATE 20 MCG/2 ML VIAL IH SCH (21:00)
[2019-11-06] MEDS ORDERED: BUDESONIDE 0.25 MG/2 ML VIAL.NEB IH SCH (21:00)
[2019-11-07] MEDS: POTASSIUM CHLORIDE IN WATER 100 ML IV SCH ×6 (00:14→11:49)
[2019-11-07] MEDS: ALBUTEROL SULFATE/IPRATROPIUM 3 ML NEBU IH SCH ×4 (03:10→18:01)
[2019-11-07 05:35] LABS: Prothrombin Time (Patient) 13.4 Seconds (9.1-10.7)
[2019-11-07 05:37] LABS: Hemoglobin 8.2 gm/dL (13.5-18.0); Mean Cell Volume 104.3 fl (78-100); Mean Corpuscular Hemoglobin 35.7 pg (27-31); Mean Corpuscular Hgb Conc 34.2 g/dl (32-36); Mean Platelet Volume 11.6 fl (8-11.3); Neutrophil # 3.9 K/mm3 (1.3-6.0); Neutrophil % 80.2 % (42-75.0); Platelet Count 104 K/mm3 (150-450); Red Cell Distribution Width 21.1 % (11.5-14.0); White Blood Count 4.9 K/mm3 (4.0-10.5)
[2019-11-07 05:42] LABS: Albumin * 2.1 gm/dl (3.4-5.0); Anion Gap 13.8 mmol/L (6.8-13.8); Bilirubin, Total 6.1 mg/dL (0.0-1.1); Ca. Corrected For Albumin 8.4 mg/dL (8.4-10.2); Calcium * 7.2 mg/dL (7.9-10.9); Carbon Dioxide 28.9 mmol/L (24-32.6); Potassium 2.7 mmol/L (3.4-4.6); Total Protein 5.1 gm/dL (6.2-8.2)
[2019-11-07 05:47] LABS: INR 1.37 INR (0.92-1.08)
[2019-11-07] MEDS: BUDESONIDE 0.25 MG/2 ML VIAL.NEB IH SCH ×2 (06:05→18:01)
[2019-11-07] MEDS: FORMOTEROL FUMARATE 20 MCG/2 ML VIAL IH SCH ×2 (06:05→18:01)
--- NOTE | 2019-11-07 07:22 | PN ---
Subjective - Date and Time Seen Date: 11/07/19 Time: 07:21 Subjective Narrative: No acute events overnight. Patient states he feels a lot better. Patient has improved drastically. He is alert, getting out of bed, able to communicate. Showing signs of alcohol withdrawal with tremors. at bedside and discussed management, and anticipate discharge tomorrow. Objective - Review of Systems Generalized/Overall Review: Denies: Weakness, Chills, Fever, Fatigue Respiratory: Denies: Cough, Shortness of Breath, Orthopnea, Wheezing Cardiac: Denies: Chest Pain, Edema Abdominal: Reports: Diarrhea - due to lactulose. Denies: Nausea, Vomiting, Abdominal Pain Genitourinary Symptoms: Denies: Incontinent Musculoskeletal Complaints: Denies: Joint Pain, Back Pain, Joint Swelling Neurological: Reports: Headache, Tremors. Denies: Weakness, Pre-existing Defici t Skin: Denies: Dryness - Vitals Vitals: Last Vital Signs Temp 36.4 C 11/07/19 01:52 Pulse 92 11/07/19 06:14 Resp 18 11/07/19 06:14 BP 135/96 H 11/07/19 01:52 Pulse Ox 94 11/07/19 06:05 - Abnormal Lab Findings Abnormal Lab Findings: Abnormal Lab Results 11/06/19 11/06/19 11/06/19 Range/Units 09:33 10:56 10:56 WBC (4.0-10.5) K/mm3 RBC 2.42 L (4.7-6.0) M/mm3 Hgb 8.6 L (13.5-18.0) gm/dL Hct 25.4 L (42.0-52.0) % MCV 105.0 H (78-100) fl MCH 35.5 H (27-31) pg RDW 20.9 H (11.5-14.0) % Plt Count 102 L (150-450) K/mm3 MPV 11.6 H (8-11.3) fl Immature Gran % (Auto) 0.70 H (0.001-0.429) % Immature Gran # (Auto) (0.000-0.0310) K/mm3 Neutrophils % (42-75.0) % Lymphocytes % 14.6 L (20-51) % Monocytes % 10.5 H (0.0-9) % Lymphocytes # 0.64 L (1.5-3.5) k/mm3 PT (9.1-10.7) Seconds INR (Anticoag Therapy) (0.92-1.08) INR pCO2 31.0 L (35.0-48.0) mmHg pO2 72.2 L (83.0-108.0) mmHg HCO3 28.2 H (21.0-28.0) mmol/L Total CO2 29.2 H (19.0-24.0) mmol/L Base Excess 6.1 H (-2.0-3.0) mmol/L ABG pH 7.58 H (7.35-7.45) Potassium 2.6 L D (3.4-4.6) mmol/L Chloride 90 L (97-106) mmol/L Carbon Dioxide 34.3 H (24-32.6) mmol/L BUN 37 H (6-23) mg/dL Creatinine 2.19 H (0.4-1.4) mg/dL Est GFR (Non-Af Amer) 33 L (60-130) mL/min BUN/Creatinine Ratio (9.0-21.6) Random Glucose 156 H (70-110) mg/dL Calcium 7.3 L (7.9-10.9) mg/dL Total Bilirubin 7.2 H (0.0-1.1) mg/dL AST 516 H (0-48) U/L ALT 106 H (19-67) U/L Alkaline Phosphatase 231 H (50-170) U/L Ammonia (11-35) mcmol/L Total Protein 5.1 L (6.2-8.2) gm/dL Albumin 2.1 L (3.4-5.0) gm/dl 11/06/19 11/06/19 11/06/19 Range/Units 10:56 15:50 15:50 WBC 3.4 L D (4.0-10.5) K/mm3 RBC 2.44 L (4.7-6.0) M/mm3 Hgb 8.8 L (13.5-18.0) gm/dL Hct 25.8 L (42.0-52.0) % MCV 105.7 H (78-100) fl MCH 36.1 H (27-31) pg RDW 21.2 H (11.5-14.0) % Plt Count 106 L (150-450) K/mm3 MPV 11.5 H (8-11.3) fl Immature Gran % (Auto) 1.20 H (0.001-0.429) % Immature Gran # (Auto) 0.04 H (0.000-0.0310) K/mm3 Neutrophils % 87.1 H (42-75.0) % Lymphocytes % 7.6 L (20-51) % Monocytes % (0.0-9) % Lymphocytes # 0.26 L (1.5-3.5) k/mm3 PT 13.2 H (9.1-10.7) Seconds INR (Anticoag Therapy) 1.35 H (0.92-1.08) INR pCO2 (35.0-48.0) mmHg pO2 (83.0-108.0) mmHg HCO3 (21.0-28.0) mmol/L Total CO2 (19.0-24.0) mmol/L Base Excess (-2.0-3.0) mmol/L ABG pH (7.35-7.45) Potassium (3.4-4.6) mmol/L Chloride (97-106) mmol/L Carbon Dioxide (24-32.6) mmol/L BUN (6-23) mg/dL Creatinine (0.4-1.4) mg/dL Est GFR (Non-Af Amer) (60-130) mL/min BUN/Creatinine Ratio (9.0-21.6) Random Glucose (70-110) mg/dL Calcium (7.9-10.9) mg/dL Total Bilirubin (0.0-1.1) mg/dL AST (0-48) U/L ALT (19-67) U/L Alkaline Phosphatase (50-170) U/L Ammonia 40.0 H (11-35) mcmol/L Total Protein (6.2-8.2) gm/dL Albumin (3.4-5.0) gm/dl 11/06/19 11/07/19 11/07/19 Range/Units 15:50 05:15 05:15 WBC (4.0-10.5) K/mm3 RBC 2.30 L (4.7-6.0) M/mm3 Hgb 8.2 L (13.5-18.0) gm/dL Hct 24.0 L (42.0-52.0) % MCV 104.3 H (78-100) fl MCH 35.7 H (27-31) pg RDW 21.1 H (11.5-14.0) % Plt Count 104 L (150-450) K/mm3 MPV 11.6 H (8-11.3) fl Immature Gran % (Auto) 1.40 H (0.001-0.429) % Immature Gran # (Auto) 0.07 H (0.000-0.0310) K/mm3 Neutrophils % 80.2 H (42-75.0) % Lymphocytes % 9.0 L (20-51) % Monocytes % 9.2 H (0.0-9) % Lymphocytes # 0.44 L (1.5-3.5) k/mm3 PT 13.4 H (9.1-10.7) Seconds INR (Anticoag Therapy) 1.37 H (0.92-1.08) INR pCO2 (35.0-48.0) mmHg pO2 (83.0-108.0) mmHg HCO3 (21.0-28.0) mmol/L Total CO2 (19.0-24.0) mmol/L Base Excess (-2.0-3.0) mmol/L ABG pH (7.35-7.45) Potassium 2.9 L (3.4-4.6) mmol/L Chloride 91 L (97-106) mmol/L Carbon Dioxide (24-32.6) mmol/L BUN 36 H (6-23) mg/dL Creatinine 1.73 H D (0.4-1.4) mg/dL Est GFR (Non-Af Amer) 44 L D (60-130) mL/min BUN/Creatinine Ratio (9.0-21.6) Random Glucose 166 H (70-110) mg/dL Calcium 7.2 L (7.9-10.9) mg/dL Total Bilirubin 7.0 H (0.0-1.1) mg/dL AST 500 H (0-48) U/L ALT 106 H (19-67) U/L Alkaline Phosphatase 239 H (50-170) U/L Ammonia (11-35) mcmol/L Total Protein 5.2 L (6.2-8.2) gm/dL Albumin 2.0 L (3.4-5.0) gm/dl 11/07/19 Range/Units 05:15 WBC (4.0-10.5) K/mm3 RBC (4.7-6.0) M/mm3 Hgb (13.5-18.0) gm/dL Hct (42.0-52.0) % MCV (78-100) fl MCH (27-31) pg RDW (11.5-14.0) % Plt Count (150-450) K/mm3 MPV (8-11.3) fl Immature Gran % (Auto) (0.001-0.429) % Immature Gran # (Auto) (0.000-0.0310) K/mm3 Neutrophils % (42-75.0) % Lymphocytes % (20-51) % Monocytes % (0.0-9) % Lymphocytes # (1.5-3.5) k/mm3 PT (9.1-10.7) Seconds INR (Anticoag Therapy) (0.92-1.08) INR pCO2 (35.0-48.0) mmHg pO2 (83.0-108.0) mmHg HCO3 (21.0-28.0) mmol/L Total CO2 (19.0-24.0) mmol/L Base Excess (-2.0-3.0) mmol/L ABG pH (7.35-7.45) Potassium 2.7 L (3.4-4.6) mmol/L Chloride 93 L (97-106) mmol/L Carbon Dioxide (24-32.6) mmol/L BUN 33 H (6-23) mg/dL Creatinine (0.4-1.4) mg/dL Est GFR (Non-Af Amer) (60-130) mL/min BUN/Creatinine Ratio 26.0 H (9.0-21.6) Random Glucose 181 H (70-110) mg/dL Calcium 7.2 L (7.9-10.9) mg/dL Total Bilirubin 6.1 H (0.0-1.1) mg/dL AST 391 H (0-48) U/L ALT 98 H (19-67) U/L Alkaline Phosphatase 224 H (50-170) U/L Ammonia (11-35) mcmol/L Total Protein 5.1 L (6.2-8.2) gm/dL Albumin 2.1 L (3.4-5.0) gm/dl - EKG/Xray Findings EKG: NSR EKG read: Reviewed by me - Exam Constitutional: Present: Alert, Oriented x3, Cooperative, No distress ENT Exam: Present: hearing grossly normal Neck: Present: non-tender, full range of motion, supple Respiratory: Present: lungs clear, normal breath sounds, no respiratory distress, no accessory muscle use. Absent: wheezing Cardiovascular/Chest: Present: normal peripheral pulses, regular rate, rhythm, no edema, no gallop, no JVD, no murmur Abdomen: Present: Normal bowel sounds, soft, nondistended. Absent: guarding Extremity: Present: normal range of motion, non-tender, normal inspection, no pedal edema, no calf tenderness, normal capillary refill Skin Exam: Present: jaundice - but improved from admission Neurologic: Present: alert, oriented x 3 Appearance: Present: appropriate appearance Eye contact: Present: cooperative, good eye contact Assessment/Plan Plan Narrative: Assessment/Plan 54 y/o M admitted for abdominal pain due to Alcohol Liver Hepatitis, Suspected SBP and concern for Upper GI bleed. Due to high MELD score of 30, there's a concern for underlying cirrhosis therefore managed as ESLD. - Alcohol Liver Hepatitis with Ascites, s/p diagnostic paracentesis, 2.5 L of fluid removed. POD #2 * MELD Score: 16, decreased from 30 * On Diuretic therapy of spironolactone to furosemide ratio 100:40 mg per day. Continue Sprinolactone 25 mg PO BID and will resume furosemide 20 mg daily upon discharge, initially on hold due to renal function, now it is to reduce potassium wasting. * Transamnitis trending down from admission, CT abdomen showed hepatomegaly and fatty liver. CT abdomen/pelvis limited due to lack of contrast. * Ascitic fluid analysis: WBC: 82, Neutrophils: 44, G, TP:0.5, Albumin:0.0, LDH 108, RBC>1000, Monocytes: 56. Gram Stain: negative. * Rule out Viral Panel outpatient if warranted -Spontaneous Bacterial Peritonitis * Prophylactic treatment for SBP due to presentation on admission, of abdominal pain, metabolic encephalopathy and overall deteriorating condition * Held Propranolol due to suspected SBP, will resume upon discharge for prophylactic treatment of varices * Rocephin 1gm IV q24h and Cipro 500mg PO q12h, Day #2/5 -Hepatic Encepahlopathy * Trial of lactulose 10 mg PO BID * Ammonia levels normal. Decreased Lactulose to 10 mg PO QD, and to continue daily upon discharge * Mental status significantly changed -Hepatorenal Injury * Renal failure in the setting of suspected SBP increases mortality, especially with Cr > ,BUN > 30 and total Bili > 4, transfused albumin to decrease mortality x 2 days. * Continue to hold furosemide, since large volume of fluid removed via paracentesis, and it will also reduce potassium wasting - Elevated INR * Trial of Vitamin K 10mg IVx1. * Switched to Vitamin K PO. - Suspected Gastrointestinal bleed most likely due to upper GI bleed less likely varices * Stool occult positive, most likely alcoholic gastritis. * Continue ulcer prophylaxis with protonix and sucralfate * Cancelled Nuclear Bleeding Scan * EGD to be completed outpatient -Hypokalemia * Goal is to maintain above 3.4, especially in the setting of ascites, it can precipitate renal ammonia production and worsen mental status * Will continue to replete with KCl ryders * Started KCl PO replacement * Continue to check CMP -Alcohol Liver Disease with Alcohol Abuse and elevated ETOH level * CIWA score 2 * Ativan 0.5 PO TID PRN for withdrawal symptoms * Complete banana bag hanging * Continue with folate, thiamine replacement upon discharge * Counselled on alcohol abstinence -Macrocytic anemia with folate deficiency * Folate being replaced * Hgb dropping, most likely dilutional from potassium replacement and banana bags -Hypoalbunemia and decreased Total Protein * High Protein diet * Receiving Albumin Transfusion -Thrombocytopenia * Decreased since admission, also dilutional * Continue to monitor * Not bleeding * Not a candidate for platelet transfusion -Hypoxia most likely secondary to Acute exacerbation of COPD * Received Solu-Medrol 125 mg IV x 1, Started on Duo-Neb, Budenoside, Perfomist Neb treatments * Responded well, transitioned to Prednisone 40mg po daily. Day #2/5 * Weaned off oxygen * Further evaluation of COPD outpatient with PCP - Tobacco abuse disorder * Nicotine patch FEN: High Protein, Renal and No added Salt Diet. DVT PPX: SCD's CODE STATUS: FULL CODE Disposition: - Discharge on Diuretic Therapy - Resume propanolol for esophageal varices prophylaxis - Provide prescription of antibiotics for 2 more days - Provide prescriptions for ulcer prophylaxis - provide pamphlets for rehab facilities - provide prescription for thiamine, folic, pyridoxine and lactulose - Schedule EGD outpatient - Evaluate for COPD outpatient - Anticipate discharge tomorrow morning and establish care with PCP. - Problems/Diagnosis (1) Alcoholic hepatitis with ascites Problem: Acute (2) SBP (spontaneous bacterial peritonitis) Problem: Suspected (3) Acute hepatic encephalopathy Problem: Acute (4) Transaminitis Problem: Acute (5) Gastrointestinal bleed Problem: Acute Qualifiers: GI bleed type/associated pathology: gastritis Gastritis type: alcoholic Qualified Code(s): K29.21 - Alcoholic gastritis with bleeding (6) Folate deficiency anemia Problem: Acute Qualifiers: Folate deficiency anemia type: dietary Qualified Code(s): D52.0 - Dietary folate deficiency anemia (7) Hypokalemia Problem: Acute (8) Acute exacerbation of chronic obstructive pulmonary disease (COPD) Problem: Suspected (9) Hypoxia Problem: Acute (10) Tobacco abuse disorder Problem: Acute (11) Alcohol abuse Problem: Acute (12) Elevated ETOH level Problem: Acute Qualifiers: Blood alcohol level: 100-119 mg/100 ml Qualified Code(s): Y90.5 - Blood alcohol level of 100-119 mg/100 ml
[2019-11-07] MEDS: FOLIC ACID 1 MG TABLET PO SCH (08:03)
[2019-11-07] MEDS: SUCRALFATE 1 G TABLET PO SCH ×2 (08:03→20:15)
[2019-11-07] MEDS: SPIRONOLACTONE 25 MG TABLET PO SCH ×2 (08:04→20:15)
[2019-11-07] MEDS: LACTULOSE 10 G/15 ML SYRUP PO SCH ×2 (08:04→20:14)
[2019-11-07] MEDS: PANTOPRAZOLE SODIUM 40 MG in NORMAL SALINE 100 ML IV SCH (08:05)
[2019-11-07] MEDS: THIAMINE HCL 100 MG TABLET PO SCH (08:17)
[2019-11-07] MEDS ORDERED: NORMAL SALINE IV SCH (09:00)
[2019-11-07] MEDS ORDERED: LACTULOSE 10 G/15 ML SYRUP PO SCH (09:00)
[2019-11-07] MEDS ORDERED: CIPROFLOXACIN HCL 500 MG TABLET PO SCH ×2 (09:00→13:30)
[2019-11-07] MEDS ORDERED: PHYTONADIONE IV SCH (09:00)
[2019-11-07] MEDS ORDERED: predniSONE 20 MG TABLET PO ONE (09:00)
[2019-11-07] MEDS ORDERED: PHYTONADIONE (VIT K1) 10 MG/ML AMPUL IV SCH (09:00)
[2019-11-07] MEDS ORDERED: PHYTONADIONE (VIT K1) 5 MG TABLET PO ONE (09:00)
[2019-11-07] MEDS ORDERED: LORazepam 0.5 MG TABLET PO PRN (09:04)
[2019-11-07] MEDS: NICOTINE 21 MG PATC TD SCH (09:45)
[2019-11-07] MEDS: ALBUMIN HUMAN 12.5 G/50 ML BTL IV SCH ×4 (10:39→13:53)
[2019-11-07 11:24] LABS: Anion Gap 15.7 mmol/L (6.8-13.8); BUN/Creatinine Ratio 23.8 (9.0-21.6); Bilirubin, Total 6.1 mg/dL (0.0-1.1); Ca. Corrected For Albumin 8.4 mg/dL (8.4-10.2); Calcium * 7.1 mg/dL (7.9-10.9); Carbon Dioxide 28.2 mmol/L (24-32.6); Potassium 2.9 mmol/L (3.4-4.6); Total Protein 5.1 gm/dL (6.2-8.2)
[2019-11-07] MEDS: INSULIN LISPRO 100 UNITS/ML VIAL SC SCH ×3 (12:09→20:13)
[2019-11-07] MEDS ORDERED: CIPROFLOXACIN HCL 500 MG TABLET PO ONE (13:45)
[2019-11-07 17:55] LABS: Mean Cell Volume 104.1 fl (78-100); Mean Corpuscular Hemoglobin 36.4 pg (27-31); Mean Corpuscular Hgb Conc 34.9 g/dl (32-36); Mean Platelet Volume 10.7 fl (8-11.3); Neutrophil # 3.5 K/mm3 (1.3-6.0); Neutrophil % 82.1 % (42-75.0); Platelet Count 93 K/mm3 (150-450); Red Cell Distribution Width 21.1 % (11.5-14.0); White Blood Count 4.3 K/mm3 (4.0-10.5)
[2019-11-07 18:05] LABS: Hematocrit 22.9 % (42.0-52.0)
[2019-11-07] MEDS ORDERED: POTASSIUM CHLORIDE 20 MEQ TABLET.SA PO ONE (18:10)
[2019-11-07 18:17] LABS: Albumin * 2.7 gm/dl (3.4-5.0); Anion Gap 11.2 mmol/L (6.8-13.8); BUN/Creatinine Ratio 25.2 (9.0-21.6); Bilirubin, Total 6.4 mg/dL (0.0-1.1); Ca. Corrected For Albumin 8.1 mg/dL (8.4-10.2); Calcium * 7.4 mg/dL (7.9-10.9); Carbon Dioxide 31.8 mmol/L (24-32.6); Total Protein 5.5 gm/dL (6.2-8.2)
[2019-11-07] MEDS: KETOROLAC TROMETHAMINE 15 MG/ML VIAL IM PRN (19:18)
[2019-11-07] MEDS: CIPROFLOXACIN HCL 500 MG TABLET PO SCH (20:14)
[2019-11-08] MEDS: ALBUTEROL SULFATE/IPRATROPIUM 3 ML NEBU IH SCH ×2 (01:16→06:18)
[2019-11-08] MEDS ORDERED: POTASSIUM CHLORIDE 20 MEQ TABLET.SA PO ONE ×2 (05:00)
--- NOTE | 2019-11-08 05:46 | DS ---
(1) Alcoholic hepatitis with ascites Problem: Acute (2) SBP (spontaneous bacterial peritonitis) Problem: Suspected (3) Acute hepatic encephalopathy Problem: Acute (4) Transaminitis Problem: Acute (5) Gastrointestinal bleed Problem: Acute Qualifiers: GI bleed type/associated pathology: gastritis Gastritis type: alcoholic Qualified Code(s): K29.21 - Alcoholic gastritis with bleeding (6) Folate deficiency anemia Problem: Acute Qualifiers: Folate deficiency anemia type: dietary Qualified Code(s): D52.0 - Dietary folate deficiency anemia (7) Hypokalemia Problem: Acute (8) Acute exacerbation of chronic obstructive pulmonary disease (COPD) Problem: Suspected (9) Hypoxia Problem: Acute (10) Tobacco abuse disorder Problem: Acute (11) Alcohol abuse Problem: Acute (12) Elevated ETOH level Problem: Acute Qualifiers: Blood alcohol level: 100-119 mg/100 ml Qualified Code(s): Y90.5 - Blood alcohol level of 100-119 mg/100 ml Date of Discharge:: 11/08/19 Hospital Course: 54 y/o M admitted for abdominal pain due to Alcohol Liver Hepatitis with ascites, Suspected SBP and concern for Upper GI bleed. Due to high MELD score of 30, there's a concern for underlying cirrhosis therefore managed as ESLD. Started on alcohol withdrawal protocol, resuscitated with banana bag and PO dietary supplements. Started on diuretic therapy for ascites with spironolactone to furosemide ratio 100:40 mg per day, with minimal improvement. Followed by a diagnostic paracentesis with removal on 2.5 L with minimal improvement in abdominal pain. CT abdomen ordered for further evaluation, which demonstrated hepatomegaly and fatty liver. CT abdomen/pelvis limited due to lack of contrast. Ascitic fluid cultured. Started on prophylactic treatment for SBP with rocephin 1 gram and Cipro 500mg PO BID for 2 days whilst awaiting cultures, which showed no growth. LFTs trended down during hospitalization. Patient developed Hepatorenal syndrome in the setting of suspected SBP which increases mortality, patient transfused with albumin, with significant improvement in overall condition, furosemide was held due to renal failure and potassium wasting. Developed Hepatic encephalopathy on day # 2 of hospitalization, started on lactulose 10 mg PO BID and ammonia levels returned to normal, encephalopathy resolved by day#3 of hospitalization, and lactulose decreased to 10 mg daily. Had difficulty with potassium wasting, repleted multiple times with both IV and PO potassium, goal was maintain potassium levels above 3.4, to prevent ammonia production and worsening of hepatic encephalopathy. Goal achieved by day of discharge. Had dark stool on admission with macrocytic anemia, with a hgb of 7.9, blood loss most likely from alcoholic gastritis less likely varices . Patient transfused with 1 unit of blood with significant improvement. Started on propranolol for prophylactic treatment for varices, which was held due to worsening renal function. Labs showed he was folate deficient, started replacing folate. Other complications were elevated PT/INR, Thrombocytopenia, Hypoalbunemia and decreased total protein. Trial of Vit K administered with minimal improvement in PT/INR. He was not actively bleeding, and not a candidate for platelet transfusion, and albumin and protein levels improved with albumin infusion. Patient became hypoxic with labored breathing, CXR cw with hyperinflammation. Patient is a current 1PPD smoker, and PE was cw diffuse wheezing. Treated as acute exacerbation of COPD with methyprednisone 125 mg IV x 1, Neb treatments with albuterol, Budenoside and Performist, with significant improvement. Switc hed to prednisone 40mg PO daily. Will schedule EGD outpatient and be further evaluated for COPD outpatient New Medications - Diuretic Therapy: Spironolactone 25 mg PO BID and Furosemide 20 mg PO QD - Propanolol 20 mg daily for esophageal varices prophylaxis - Pantoprazole 40 mg PO QD and Sucralfate 1 mg PO BD for ulcer prophylaxis - Thiamine 100mg daily as a dietary supplementation - Folate 1mg daily for folate deficiency anemia - Lactulose for pprevention of Hepatic encephalopathy -Prednisone 40 mg po daily for 3 days - Albuterol inhaler - Ativan 0.5 mg PO TID PRN for alcohol withdrawal, only 15 tablets dispensed Follow up: Dr. Gandhi to establish care. Procedures Performed: see notes below - diagnostic paracentesis List Procedures: Diagnostic Paracentesis Care Plan Goals: optimize medications for alcohol liver disease abstain from alcohol Plan of Treatment: Lactulose Propranolol Spironolactone Omeprazole and Sucralfate -Ulcer prophylaxis thiamine, folate, pyridoxine daily - Deficient due to alcoholism EGD outpatient Health Concerns: Alcohol abuse and deteriorating condition Highly recommend abstinence from alcohol and rehab Assessment: -Alcohol Hepatitis with Ascites -SBP -Hepatic encephalopathy -Hepatorenal Syndrome -Alcholic gastritis -Folate deficiency anemia -Hypokalemia Results and Findings: Pending Mircobiology Results 11/06/19 16:03 Blood Blood Culture - Preliminary NO GROWTH 24 HOURS 11/06/19 15:50 Blood Blood Culture - Preliminary NO GROWTH 24 HOURS 11/05/19 11:25 Ascites Body Fluid Culture - Preliminary No Growth Lab Pending Results 11/05/19 04:45: Urine Color Dark yellow, Urine Appearance Slightly cloudy, Urine pH 5.5, Ur Specific [place] 1.025, Urine Protein 30 H, Urine Glucose (UA) Negative, Urine Ketones 15, Urine Blood 5 H, Urine Nitrate Negative, Urine Bilirubin 6 H, Urine Ictotest Positive H, Prot Sulfosalicylic Acd 1+, Urine Urobilinogen 2.0 H, Ur Leukocyte Esterase Negative, Urine RBC None seen, Urine WBC None seen, Ur Epithelial Cells 0-5, Urine Bacteria Trace, Urine Culture C omments No culture indicated 11/05/19 04:45: Stool Occult Blood Positive H 11/05/19 04:50: WBC 8.4, RBC 2.40 L, Hgb 9.2 L, Hct 27.3 L, MCV 113.8 H, MCH 38.3 H, MCHC 33.7, RDW 17.9 H, Plt Count 191, MPV 10.9, Immature Gran % (Auto) 1.30 H, Immature Gran # (Auto) 0.11 H, Neutrophils % 73.8, Lymphocytes % 14.1 L, Monocytes % 10.2 H, Eosinophils % 0.1, Basophils % 0.5, Nucleated RBC % 0.0, Neutrophils # 6.2 H, Lymphocytes # 1.18 L, Monocytes # 0.9, Eosinophils # 0.0, Absolute Basophils 0.0 11/05/19 04:50: Sodium 133, Plasma Sodium 133, Potassium 2.7 L, Chloride 83 L, Carbon Dioxide 20.8 L, Anion Gap 31.9 H, BUN 26 H, Creatinine 1.51 H, Est GFR (Non-Af Amer) 51 L D, BUN/Creatinine Ratio 17.2, Random Glucose 89, Calcium 8.0, Calcium Adj for Albumin 9.0, Total Bilirubin 6.5 H, AST 449 H, ALT 102 H, Alkaline Phosphatase 315 H, Total Protein 6.0 L, Albumin 2.4 L, Amylase 33, Lipase 353 11/05/19 04:50: PT 11.7 H, INR (Anticoag Therapy) 1.19 H, PTT (Anthony) 24.6 11/05/19 04:50: Ammonia 29.0 11/05/19 07:35: WBC 7.7, RBC 2.25 L, Hgb 8.5 L, Hct 25.6 L, MCV 113.8 H, MCH 37.8 H, MCHC 33.2, RDW 18.0 H, Plt Count 173, MPV 11.2, Immature Gran % (Auto) 1.90 H, Immature Gran # (Auto) 0.15 H, Neutrophils % 77.4 H, Lymphocytes % 11.0 L, Monocytes % 9.2 H, Eosinophils % 0.1, Basophils % 0.4, Nucleated RBC % 0.0, Neutrophils # 6.0, Lymphocytes # 0.85 L, Monocytes # 0.7, Eosinophils # 0.0, Absolute Basophils 0.0 11/05/19 07:35: Sodium 133, Plasma Sodium 133, Potassium 2.9 L, Chloride 82 L, Carbon Dioxide 15.7 L, Anion Gap 38.2 H, BUN 27 H, Creatinine 1.70 H, Est GFR (Non-Af Amer) 45 L, BUN/Creatinine Ratio 15.9, Random Glucose 95, Calcium 7.9, Calcium Adj for Albumin 9.0, Magnesium 1.5, Total Bilirubin 6.2 H, AST 428 H, ALT 97 H, Alkaline Phosphatase 285 H, Total Protein 5.7 L, Albumin 2.2 L, Ethyl Alcohol 112.0 H 11/05/19 07:35: Vitamin B12 1318 H 11/05/19 11:25: Fluid Color Red, Fluid Appearance Bloody, Fluid WBC 82, Fluid RBC Greater than 1000.0 H, Fluid Neutrophils 44, Fluid Monocytes 56 11/05/19 11:25: Fluid Glucose 98, Fluid Total Protein 0.5, Fluid LDH 106 11/05/19 11:25: Fluid Albumin 0.0 11/05/19 13:56: Folate 3.4 L 11/05/19 17:16: WBC 6.5, RBC 2.06 L, Hgb 7.9 L*, Hct 23.2 L*, MCV 112.6 H, MCH 38.3 H, MCHC 34.1, RDW 17.9 H, Plt Count 142 L, MPV 11.2, Immature Gran % (Auto) 0.90 H, Immature Gran # (Auto) 0.06 H, Neutrophils % 73.9, Lymphocytes % 13.9 L, Monocytes % 11.1 H, Eosinophils % 0.0, Basophils % 0.2, Nucleated RBC % 0.0, Neutrophils # 4.8, Lymphocytes # 0.90 L, Monocytes # 0.7, Eosinophils # 0.0, Absolute Basophils 0.0 11/05/19 18:00: Blood Type A Positive, Antibody Screen Negative, Crossmatch See Detail 11/06/19 00:50: Hgb 8.5 L, Hct 26.4 L 11/06/19 05:15: Urine Opiates Screen Negative, Barbiturate Screen Negative, Ur Phencyclidine Scrn Negative, Urine Amphetamine Negative, U Benzodiazepines Scrn Negative, Urine Cocaine Screen Negative, Urine Marijuana (THC) Positive H 11/06/19 05:30: PT 13.1 H, INR (Anticoag Therapy) 1.34 H 11/06/19 05:30: WBC 4.8 D, RBC 2.34 L, Hgb 8.5 L, Hct 24.7 L, MCV 105.6 H, MCH 36.3 H, MCHC 34.4, RDW 20.9 H, Plt Count 107 L, MPV 11.5 H, Immature Gran % (Auto) 0.80 H, Immature Gran # (Auto) 0.04 H, Neutrophils % 70.4, Lymphocytes % 18.5 L, Monocytes % 9.5 H, Eosinophils % 0.8, Basophils % 0.0, Nucleated RBC % 0.1, Neutrophils # 3.3, Lymphocytes # 0.88 L, Monocytes # 0.5, Eosinophils # 0.0, Absolute Basophils 0.0 11/06/19 05:30: Sodium 133, Plasma Sodium 134, Potassium 2.1 L* D, Chloride 90 L, Carbon Dioxide 33.9 H, Anion Gap 11.2, BUN 37 H, Creatinine 2.31 H D, Est GFR (Non-Af Amer) 31 L D, BUN/Creatinine Ratio 16.0, Random Glucose 133 H D, Calcium 7.4 L, Calcium Adj for Albumin 8.5, Total Bilirubin 6.9 H, AST 513 H, ALT 104 H, Alkaline Phosphatase 233 H, Total Protein 5.1 L, Albumin 2.2 L 11/06/19 09:33: pCO2 31.0 L, pO2 72.2 L, HCO3 28.2 H, Total CO2 29.2 H, Base Excess 6.1 H, ABG pH 7.58 H, ABG O2 Sat (Measured) 96.5 11/06/19 10:56: WBC 4.4, RBC 2.42 L, Hgb 8.6 L, Hct 25.4 L, MCV 105.0 H, MCH 35.5 H, MCHC 33.9, RDW 20.9 H, Plt Count 102 L, MPV 11.6 H, Immature Gran % (Auto) 0.70 H, Immature Gran # (Auto) 0.03, Neutrophils % 73.1, Lymphocytes % 14.6 L, Monocytes % 10.5 H, Eosinophils % 0.9, Basophils % 0.2, Nucleated RBC % 0.1, Neutrophils # 3.2, Lymphocytes # 0.64 L, Monocytes # 0.5, Eosinophils # 0.0, Absolute Basophils 0.0 11/06/19 10:56: Sodium 132, Plasma Sodium 133, Potassium 2.6 L D, Chloride 90 L, Carbon Dioxide 34.3 H, Anion Gap 10.3, BUN 37 H, Creatinine 2.19 H, Est GFR (Non-Af Amer) 33 L, BUN/Creatinine Ratio 16.9, Random Glucose 156 H, Calcium 7.3 L, Calcium Adj for Albumin 8.5, Total Bilirubin 7.2 H, AST 516 H, ALT 106 H, Alkaline Phosphatase 231 H, Total Protein 5.1 L, Albumin 2.1 L 11/06/19 10:56: Ammonia 40.0 H 11/06/19 15:50: WBC 3.4 L D, RBC 2.44 L, Hgb 8.8 L, Hct 25.8 L, MCV 105.7 H, MCH 36.1 H, MCHC 34.1, RDW 21.2 H, Plt Count 106 L, MPV 11.5 H, Immature Gran % (Auto) 1.20 H, Immature Gran # (Auto) 0.04 H, Neutrophils % 87.1 H, Lymphocytes % 7.6 L, Monocytes % 3.8, Eosinophils % 0.3, Basophils % 0.0, Nucleated RBC % 0.0, Neutrophils # 3.0, Lymphocytes # 0.26 L, Monocytes # 0.1, Eosinophils # 0.0, Absolute Basophils 0.0 11/06/19 15:50: PT 13.2 H, INR (Anticoag Therapy) 1.35 H 11/06/19 15:50: Sodium 132, Plasma Sodium 133, Potassium 2.9 L, Chloride 91 L, Carbon Dioxide 32.0, Anion Gap 11.9, BUN 36 H, Creatinine 1.73 H D, Est GFR (Non-Af Amer) 44 L D, BUN/Creatinine Ratio 20.8, Random Glucose 166 H, Calcium 7.2 L, Calcium Adj for Albumin 8.5, Total Bilirubin 7.0 H, AST 500 H, ALT 106 H, Alkaline Phosphatase 239 H, Total Protein 5.2 L, Albumin 2.0 L 11/06/19 15:50: Lactic Acid, Venous 1.1 11/07/19 05:15: WBC 4.9 D, RBC 2.30 L, Hgb 8.2 L, Hct 24.0 L, MCV 104.3 H, MCH 35.7 H, MCHC 34.2, RDW 21.1 H, Plt Count 104 L, MPV 11.6 H, Immature Gran % (Auto) 1.40 H, Immature Gran # (Auto) 0.07 H, Neutrophils % 80.2 H, Lymphocytes % 9.0 L, Monocytes % 9.2 H, Eosinophils % 0.0, Basophils % 0.2, Nucleated RBC % 0.0, Neutrophils # 3.9, Lymphocytes # 0.44 L, Monocytes # 0.5, Eosinophils # 0.0, Absolute Basophils 0.0 11/07/19 05:15: PT 13.4 H, INR (Anticoag Therapy) 1.37 H 11/07/19 05:15: Sodium 133, Plasma Sodium 134, Potassium 2.7 L, Chloride 93 L, Carbon Dioxide 28.9, Anion Gap 13.8, BUN 33 H, Creatinine 1.27, Est GFR (Non-Af Amer) 63 D, BUN/Creatinine Ratio 26.0 H, Random Glucose 181 H, Calcium 7.2 L, Calcium Adj for Albumin 8.4, Total Bilirubin 6.1 H, AST 391 H, ALT 98 H, Alkaline Phosphatase 224 H, Total Protein 5.1 L, Albumin 2.1 L 11/07/19 05:15: Ammonia 20.0 11/07/19 10:56: Sodium 134, Plasma Sodium 137, Potassium 2.9 L, Chloride 93 L, Carbon Dioxide 28.2, Anion Gap 15.7 H, BUN 31 H, Creatinine 1.30, Est GFR (Non- Af Amer) 61, BUN/Creatinine Ratio 23.8 H, Random Glucose 314 H D, Calcium 7.1 L, Calcium Adj for Albumin 8.4, Total Bilirubin 6.1 H, AST 353 H, ALT 94 H, Alkaline Phosphatase 227 H, Total Protein 5.1 L, Albumin 2.0 L 11/07/19 17:50: WBC 4.3, RBC 2.20 L, Hgb 8.0 L, Hct 22.9 L*, MCV 104.1 H, MCH 36.4 H, MCHC 34.9, RDW 21.1 H, Plt Count 93 L, MPV 10.7, Immature Gran % (Auto) 1.60 H, Immature Gran # (Auto) 0.07 H, Neutrophils % 82.1 H, Lymphocytes % 7.8 L, Monocytes % 8.5, Eosinophils % 0.0, Basophils % 0.0, Nucleated RBC % 0.0, Neutrophils # 3.5, Lymphocytes # 0.33 L, Monocytes # 0.4, Eosinophils # 0.0, Absolute Basophils 0.0 11/07/19 17:50: Sodium 134, Plasma Sodium 136, Potassium 3.0 L, Chloride 94 L, Carbon Dioxide 31.8, Anion Gap 11.2, BUN 28 H, Creatinine 1.11, Est GFR (Non-Af Amer) 73, BUN/Creatinine Ratio 25.2 H, Random Glucose 215 H D, Calcium 7.4 L, Calcium Adj for Albumin 8.1 L, Total Bilirubin 6.4 H, AST 306 H, ALT 88 H, Alkaline Phosphatase 213 H, Total Protein 5.5 L, Albumin 2.7 L Discharge Location: Home Disposition: Home self-care Condition: Stable Discharge Activity: Activity as tolerated Discharge Diet: Low salt, High Fiber - high protein diet, Other Referrals: Ansley Gandhi MD [Staff Physician] - One Week (Hospital follow up and establish care) Prescriptions (Any new or edited meds): Spironolactone [Aldactone] 25 mg PO BID #60 tab Transmission Status: Received by [facility] LORazepam [Ativan] 0.5 mg PO TID #15 tab Transmission Status: Received by [facility] Sucralfate [Carafate] 1 g PO BID #60 tab Transmission Status: Received by [facility] Lactulose [Enulose] 10 g PO DAILY #30 syrup Transmission Status: Received by [facility] Folic Acid 1 mg PO DAILY #30 tab Transmission Status: Received by [facility] Propranolol HCl [Inderal] 20 mg PO DAILY #30 tab Transmission Status: Received by [facility] Furosemide [Lasix] 20 mg PO QAM #30 tab Transmission Status: Received by [facility] predniSONE [Prednisone] 2 tab PO QAM 3 Days #6 tab Transmission Status: Received by [facility] Pantoprazole Sodium [Protonix] 40 mg PO DAILY@0700 #30 tablet.dr Transmission Status: Received by [facility] Albuterol Sulfate [Ventolin Hfa] 2 puff INHALATION Q6H PRN #1 inhaler PRN Reason: Shortness Of Breath Transmission Status: Received by [facility] Thiamine HCl [Vitamin B-1] 100 mg PO DAILY #30 tab Transmission Status: Received by [facility] Complete Home Medications List: Complete Home Medication List: Albuterol Sulfate [Ventolin Hfa] 2 puff INHALATION Q6H PRN #1 inhaler 11/08/19 Folic Acid 1 mg PO DAILY #30 tab 11/08/19 Furosemide [Lasix] 20 mg PO QAM #30 tab 11/08/19 LORazepam [Ativan] 0.5 mg PO TID #15 tab 11/08/19 Lactulose [Enulose] 10 g PO DAILY #30 syrup 11/08/19 Pantoprazole Sodium [Protonix] 40 mg PO DAILY@0700 #30 tablet.dr 11/08/19 Propranolol HCl [Inderal] 20 mg PO DAILY #30 tab 11/08/19 Spironolactone [Aldactone] 25 mg PO BID #60 tab 11/08/19 Sucralfate [Carafate] 1 g PO BID #60 tab 11/08/19 Thiamine HCl [Vitamin B-1] 100 mg PO DAILY #30 tab 11/08/19 predniSONE [Prednisone] 2 tab PO QAM 3 Days #6 tab 11/08/19
[2019-11-08] MEDS: BUDESONIDE 0.25 MG/2 ML VIAL.NEB IH SCH (06:19)
[2019-11-08] MEDS: FORMOTEROL FUMARATE 20 MCG/2 ML VIAL IH SCH (06:19)
[2019-11-08 06:22] LABS: Hematocrit 27.4 % (42.0-52.0); Hemoglobin 9.4 gm/dL (13.5-18.0); Mean Cell Volume 105.4 fl (78-100); Mean Corpuscular Hemoglobin 36.2 pg (27-31); Mean Corpuscular Hgb Conc 34.3 g/dl (32-36); Mean Platelet Volume 11.2 fl (8-11.3); NRBC# 0.1 k/mm3 (0-1); Neutrophil # 3.8 K/mm3 (1.3-6.0); Platelet Count 108 K/mm3 (150-450); Red Cell Distribution Width 21.8 % (11.5-14.0); White Blood Count 5.3 K/mm3 (4.0-10.5)
[2019-11-08 06:23] LABS: Prothrombin Time (Patient) 11.9 Seconds (9.1-10.7)
[2019-11-08 06:26] LABS: INR 1.21 INR (0.92-1.08)
[2019-11-08 06:54] LABS: Hemoglobin A1C 4.9 % (4.00-6.0)
[2019-11-08 06:56] LABS: Albumin * 2.7 gm/dl (3.4-5.0); Anion Gap 12.9 mmol/L (6.8-13.8); BUN/Creatinine Ratio 24.1 (9.0-21.6); Bilirubin, Total 7.3 mg/dL (0.0-1.1); Ca. Corrected For Albumin 8.9 mg/dL (8.4-10.2); Calcium * 8.2 mg/dL (7.9-10.9); Carbon Dioxide 29.6 mmol/L (24-32.6); Potassium 3.5 mmol/L (3.4-4.6); Total Protein 5.8 gm/dL (6.2-8.2)
[2019-11-08] MEDS ORDERED: PANTOPRAZOLE SODIUM 40 MG TABLET.EC PO SCH (07:00)
[2019-11-08] MEDS ORDERED: POTASSIUM CHLORIDE 20 MEQ TABLET.SA PO SCH (09:00)
[2019-11-08] MEDS: CIPROFLOXACIN HCL 500 MG TABLET PO SCH (09:25)
[2019-11-08] MEDS: NICOTINE 21 MG PATC TD SCH (09:25)
[2019-11-08] MEDS: SPIRONOLACTONE 25 MG TABLET PO SCH (09:26)
[2019-11-08] MEDS: INSULIN LISPRO 100 UNITS/ML VIAL SC SCH (09:26)
[2019-11-08] MEDS: SUCRALFATE 1 G TABLET PO SCH (09:26)
[2019-11-08] MEDS: LACTULOSE 10 G/15 ML SYRUP PO SCH (09:27)
[2019-11-08] MEDS: FOLIC ACID 1 MG TABLET PO SCH (09:27)
[2019-11-08] MEDS: THIAMINE HCL 100 MG TABLET PO SCH (09:27)
[2019-11-08] MEDS: KETOROLAC TROMETHAMINE 15 MG/ML VIAL IM PRN (10:56)
[2019-11-08 13:50] VITALS: BP 99/66
== END 2019-11-08 12:45 | disposition home or self-care (01) | DRG 432 ==
LOC: ER 03:39 → INTOOBSV 06:15 → MS 06:15
PROVIDERS: ADMIT Family Medicine; ATTEND Family Medicine
DX: E87.6 Hypokalemia; J44.1 Chronic obstructive pulmonary disease with (acute) exacerbation; D52.9 Folate deficiency anemia, unspecified; K65.2 Spontaneous bacterial peritonitis; K29.21 Alcoholic gastritis with bleeding; D53.9 Nutritional anemia, unspecified; R74.0 Nonspecific elevation of levels of transaminase and lactic acid dehydrogenase [LDH]; K72.00 Acute and subacute hepatic failure without coma; I12.9 Hypertensive chronic kidney disease with stage 1 through stage 4 chronic kidney disease, or unspecified chronic kidney disease; D52.0 Dietary folate deficiency anemia; K70.11 Alcoholic hepatitis with ascites; F17.210 Nicotine dependence, cigarettes, uncomplicated; N18.9 Chronic kidney disease, unspecified; I10 Essential (primary) hypertension; K70.9 Alcoholic liver disease, unspecified; R09.02 Hypoxemia; F10.188 Alcohol abuse with other alcohol-induced disorder; K76.7 Hepatorenal syndrome; D51.9 Vitamin B12 deficiency anemia, unspecified
CPT/HCPCS: 36415; 36600; 49083; 71020; 71046; 74019; 74020; 74176; 76705; 80053; 80307; 81001; 82140; 82150; 82272; 82607; 82746; 82803; 83036; 83605; 83615; 83690; 83735; 84075; 84155; 84157; 85014; 85018; 85025; 85610; 85730; 86850; 87040; 87070; 87205; 88108; 88305; 89051; 93005; 94640; 94664; 96365; 96366; 96367; 99285; G0378; P9016

== ENCOUNTER 2020-01-02 09:19 | Inpatient (IN) ==
--- NOTE | 2020-01-02 10:03 | ERNOTE ---
Abdominal HPI - Narrative Date of Service: 01/02/20 - General Chief Complaint: Abdominal Pain Time Seen by Provider: 01/02/20 10:02 Source: patient Exam Limitations: no limitations - Immun/Allergies/Home Medications Immunizatons: IMMUNIZATION HX Immunizations Up to Date Yes History of Influenza Vaccine No Hx Pneumococcal Vaccination No Allergies/Adverse Reactions: Allergies amlodipine Allergy (Severe, Verified 01/02/20 09:34) Retained water and bruising and severe leg cramping Home Medications: HOME MEDICATIONS Albuterol Sulfate [Ventolin Hfa] 2 puff INHALATION Q6H PRN #1 inhaler 11/08/19 [Last Taken Unknown] Folic Acid 1 mg PO DAILY #30 tab 11/08/19 [Last Taken Unknown] Furosemide [Lasix] 20 mg PO QAM #30 tab 11/08/19 [Last Taken Unknown] LORazepam [Ativan] 0.5 mg PO TID #15 tab 11/08/19 [Last Taken Unknown] Lactulose [Enulose] 10 g PO DAILY #30 syrup 11/08/19 [Last Taken Unknown] Pantoprazole Sodium [Protonix] 40 mg PO DAILY@0700 #30 tablet. 11/08/19 [Last Taken Unknown] Spironolactone [Aldactone] 25 mg PO BID #60 tab 11/08/19 [Last Taken Unknown] Sucralfate [Carafate] 1 g PO BID #60 tab 11/08/19 [Last Taken Unknown] Thiamine HCl [Vitamin B-1] 100 mg PO DAILY #30 tab 11/08/19 [Last Taken Unknown] propranolol 10 mg tablet 20 mg PO DAILY #60 tab 11/09/19 [Last Taken Unknown] - Pain Score Pain Score #1 Pain Score: 4 Abdominal Pain Onset Location: RLQ, generalized abdomen Pain Radiation: back - History of Present Illness Narrative: The patient is a 54 year old male who presents for abdominal pain and black stools which has been present for 6 days. There are associated symptoms of fatigue and lightheadedness. The patient reports pain to RLQ and generalized abdomen, 4/10. There are no alleviating factors. There are aggravating factors of position and activity. Previous treatments have included: none. The past medical history includes: HTN and liver disease. The social history is positive for current tobacco use. Patient has a history of heavy daily alcohol use but states he quit drinking October 2019. The patient has had no ill contacts. Patient states he has been having episodes of black stools for the past 6 days with several episodes daily. Patient denies vomiting but having unsettled "churning" stomach as well as reflux symptoms. Review of Systems - Review of Systems Constitutional: Present: chills, fatigue. Absent: fever EYE: Present: no symptoms reported. Absent: vision changes ENT: Present: no symptoms reported. Absent: ear pain, nasal drainage, sore throat Respiratory: Present: no symptoms reported. Absent: shortness of breath, cough Cardiology: Present: no symptoms reported. Absent: chest pain Gastrointestinal/Abdominal: Present: nausea, diarrhea, abdominal pain, eating less, drinking less. Absent: vomiting Genitourinary: Present: no symptoms reported. Absent: dysuria, hematuria, decreased urinary output Musculoskeletal: Present: back pain Skin: Absent: rash Neurological: Present: dizziness/light-headedness, weakness, tingling All Other Systems: All systems neg except as marked Medical History (Last Reviewed 01/02/20 @ 10:16 by LIDIA Swanson) Liver disease HTN (hypertension) Hypokalemia Surgical History: Surgical History (Last Reviewed 01/02/20 @ 10:16 by LIDIA Swanson) No pertinent past surgical history Family History: Family History (Last Reviewed 01/02/20 @ 10:16 by LIDIA Swanson) Mother Breast cancer Father Hypertension Social History: (Last Reviewed 01/02/20 @ 10:16 by LIDIA Swanson) Tobacco: Smoking Status: Current every day smoker tobacco type: cigarettes Smoking cigarettes per day: 10 Alcohol: alcohol intake: current Alcohol type: hard liquor alcohol intake frequency: 3 or more drinks per day Substance Use: substance use type: does not use Physical Exam - Physical Exam General Appearance: Present: alert, moderate distress, lethargic Head Exam: Present: normal inspection, no evidence of injury Eye Exam: Conjunctivae pale: bilateral Ears, Nose, Throat: Present: normal except -, dry mucous membranes, other - pale mucousa Neck: Present: normal inspection, nontender Respiratory: Present: no respiratory distress, normal breath sounds, no accessory muscle use, lungs clear Cardiovascular/Chest: Present: no murmur, tachycardia Gastrointestinal/Abdominal: Present: nondistended, soft, tenderness - RLQ moderate, diffuse abdomen, abnormal bowel sounds - hypoactive, guarding - RLQ, rebound. Absent: Obturator sign, Salcedo sign Rectal Exam: Present: nontender, normal rectal tone, black stool - samir bloody stool. Absent: mass, hemorrhoids Back Exam: Present: CVA tenderness (R), CVA tenderness (L) Neurological Exam: Present: alert, oriented, normal mood/affect, no motor/se nsory deficits Skin Exam: Present: warm/dry, pallor Progress - Date and Time Seen: Date and Time: 01/02/20 11:51 Case discussed with , will admit to medicine with surgical consult, proceed with blood products. 01/02/20 12:04 Case discussed with , will admit for GI bleed and symptomatic anemia. Discussed consult with was completed. - Results and Orders Patient's Lab Results:: I have reviewed the patient's lab results. - Vital Signs Patient's Vital Signs:: I have reviewed the patient's vital signs. Vital Signs: Vital Signs 01/02/20 09:26 Temperature 36.8 C Pulse Rate 99 Respiratory Rate 18 Blood Pressure 103/67 O2 Sat by Pulse Oximetry 100 - X-Ray X-Ray #1 X-Ray: abdomen Interpretation: Reviewed by me X-ray Comments: IMPRESSION: 1. No acute plain film pathology detected Electronically signed by Matias Purcell M.D.. - Progress/Reassessment Chief Complaint: Abdominal Pain Progress:: Improved Departure Clinical Impression: Symptomatic anemia GI bleed Qualifiers: GI bleed type/associated pathology: unspecified gastrointestinal hemorrhage type Qualified Code(s): K92.2 - Gastrointestinal hemorrhage, unspecified - Departure Disposition: Still a patient Condition: Stable Referrals: Kj Lynch DO [Primary Care Provider] -
[2020-01-02] MEDS ORDERED: ONDANSETRON HCL/PF 2 MG/ML VIAL IV ONE (10:13)
[2020-01-02] MEDS ORDERED: MORPHINE SULFATE 4 MG/ML SYRG IV ONE (10:14)
[2020-01-02] MEDS ORDERED: NORMAL SALINE 1,000 ML IV ONE (10:14)
[2020-01-02 10:41] LABS: Mean Cell Volume 95.9 fl (78-100); Mean Corpuscular Hgb Conc 30.2 g/dl (32-36); Mean Platelet Volume 10.1 fl (8-11.3); Neutrophil # 4.1 K/mm3 (1.3-6.0); Platelet Count 155 K/mm3 (150-450); Red Blood Count 1.69 M/mm3 (4.7-6.0); White Blood Count 5.5 K/mm3 (4.0-10.5)
[2020-01-02 10:51] LABS: INR 1.09 INR (0.92-1.08); Partial Thrombolplastin Time 21.7 Seconds (24-32); Prothrombin Time (Patient) 10.8 Seconds (9.1-10.7)
[2020-01-02 10:56] LABS: Albumin * 2.6 gm/dl (3.4-5.0); Anion Gap 10.7 mmol/L (6.8-13.8); BUN/Creatinine Ratio 29.4 (9.0-21.6); Bilirubin, Total 0.2 mg/dL (0.0-1.1); Ca. Corrected For Albumin 9.7 mg/dL (8.4-10.2); Calcium * 8.9 mg/dL (7.9-10.9); Carbon Dioxide 27.5 mmol/L (24-32.6); Potassium 3.2 mmol/L (3.4-4.6); Total Protein 5.6 gm/dL (6.2-8.2)
[2020-01-02 11:07] LABS: Hematocrit 16.2 % (42.0-52.0); Hemoglobin 4.9 gm/dL (13.5-18.0)
[2020-01-02] MEDS ORDERED: PANTOPRAZOLE SODIUM 40 MG/100 ML PIGGYBACK IV ONE (12:28)
[2020-01-02] MEDS: PANTOPRAZOLE SODIUM 40 MG in NORMAL SALINE 100 ML IV SCH (12:30)
--- NOTE | 2020-01-02 13:00 | HP ---
Chief Complaint - Chief Complaint Date of Service: 01/02/20 Time of Service: 12:49 Chief Complaint: blood in stool History of Present Illness: Patient with past medical history of previous alcohol use, previous pancreatitis presented to the ER this morning after having blood in his stool for 6 days. He reports having black and bloody stools. Denies vomiting. He is felt some discomfort in his abdomen for last several days. He reports taking [place]ox[place] fairly regularly. Does not take ibuprofen because it gave him kidney difficulties a few years ago. Denies recent upper respiratory infection. Does have some right lower quadrant pain. He states he has had a bit of a weak stream with urination lately. In the ER, his hemoglobin was found to be 4.9. His blood pressure initially was decreased with systolic in the 60s and 70s, but improved with normal saline bolus. Maximum heart rate was 106. At the time of my exam, his vitals were within normal range. Medical History (Last Reviewed 01/02/20 @ 10:16 by LIDIA Swanson) Liver disease HTN (hypertension) Hypokalemia Surgical History: Surgical History (Last Reviewed 01/02/20 @ 10:16 by LIDIA Swanson) No pertinent past surgical history Family History: Family History (Last Reviewed 01/02/20 @ 10:16 by LIDIA Swanson) Mother Breast cancer Father Hypertension Social History: (Last Reviewed 01/02/20 @ 10:16 by LIDIA Swanson) Tobacco: Smoking Status: Current every day smoker tobacco type: cigarettes Smoking cigarettes per day: 10 Alcohol: alcohol intake: current Alcohol type: hard liquor alcohol intake frequency: 3 or more drinks per day Substance Use: substance use type: does not use Review Of Systems (GEN) - Review of Systems Generalized/Overall Review: Present: Weakness. Absent: Fever Respiratory: Absent: Shortness of Breath Cardiac: Absent: Chest Pain Abdominal: Present: Abdominal Pain, Diarrhea, Bright blood from rectum Genitourinary: Present: Other - weak urine stream Musculoskeletal: Present: Other - hands feel cold, toe pain Neurological: Present: No Symptoms Reported Skin: Present: No Symptoms Reported Immunizations: IMMUNIZATION HX Immunizations Up to Date Yes History of Influenza Vaccine No Hx Pneumococcal Vaccination No Allergies/Adverse Reactions: Allergies Allergy/AdvReac Type Severity Reaction Status Date / Time amlodipine Allergy Severe Verified 01/02/20 09:34 Home Medications: HOME MEDICATIONS Albuterol Sulfate [Ventolin Hfa] 2 puff INHALATION Q6H PRN #1 inhaler 11/08/19 [Last Taken Unknown] Folic Acid 1 mg PO DAILY #30 tab 11/08/19 [Last Taken Unknown] Furosemide [Lasix] 20 mg PO QAM #30 tab 11/08/19 [Last Taken Unknown] LORazepam [Ativan] 0.5 mg PO TID #15 tab 11/08/19 [Last Taken Unknown] Lactulose [Enulose] 10 g PO DAILY #30 syrup 11/08/19 [Last Taken Unknown] Pantoprazole Sodium [Protonix] 40 mg PO DAILY@0700 #30 tablet.dr 11/08/19 [Last Taken Unknown] Spironolactone [Aldactone] 25 mg PO BID #60 tab 11/08/19 [Last Taken Unknown] Sucralfate [Carafate] 1 g PO BID #60 tab 11/08/19 [Last Taken Unknown] Thiamine HCl [Vitamin B-1] 100 mg PO DAILY #30 tab 11/08/19 [Last Taken Unknown] propranolol 10 mg tablet 20 mg PO DAILY #60 tab 11/09/19 [Last Taken Unknown] Exam - Exam Vital Signs: Vital Signs - Last Taken Temp 37.5 C 01/02/20 12:03 Pulse 90 01/02/20 12:03 Resp 17 01/02/20 12:03 BP 106/64 01/02/20 12:03 Pulse Ox 95 01/02/20 12:03 Constitutional: Present: Alert, Cooperative, No distress ENT Exam: Present: dry mucous membranes Respiratory: Present: lungs clear, normal breath sounds Cardiovascular/Chest: Present: regular rate, rhythm Abdomen: Present: tender - RLQ Extremity: Absent: lower extremity edema Eye contact: Present: cooperative, avoids eye contact Diagnostic Studies: Abnormal Lab Results 01/02/20 01/02/20 01/02/20 Range/Units 10:33 10:33 10:33 RBC 1.69 L (4.7-6.0) M/mm3 Hgb 4.9 L* D (13.5-18.0) gm/dL Hct 16.2 L* D (42.0-52.0) % MCHC 30.2 L (32-36) g/dl RDW 17.0 H (11.5-14.0) % Lymphocytes % 15.8 L (20-51) % Lymphocytes # 0.87 L (1.5-3.5) k/mm3 PT 10.8 H (9.1-10.7) Seconds INR (Anticoag Therapy) 1.09 H (0.92-1.08) INR PTT ([place]) 21.7 L (24-32) Seconds Sodium 143 H (132-142) mmol/L Plasma Sodium 143 H (130-142) mmol/L Potassium 3.2 L (3.4-4.6) mmol/L Chloride 108 H (97-106) mmol/L BUN/Creatinine Ratio 29.4 H (9.0-21.6) Random Glucose 125 H (70-110) mg/dL ALT 14 L (19-67) U/L Total Protein 5.6 L (6.2-8.2) gm/dL Albumin 2.6 L (3.4-5.0) gm/dl Stool Occult Blood Crossmatch 01/02/20 01/02/20 Range/Units 10:35 10:53 RBC (4.7-6.0) M/mm3 Hgb (13.5-18.0) gm/dL Hct (42.0-52.0) % MCHC (32-36) g/dl RDW (11.5-14.0) % Lymphocytes % (20-51) % Lymphocytes # (1.5-3.5) k/mm3 PT (9.1-10.7) Seconds INR (Anticoag Therapy) (0.92-1.08) INR PTT (Anthony) (24-32) Seconds Sodium (132-142) mmol/L Plasma Sodium (130-142) mmol/L Potassium (3.4-4.6) mmol/L Chloride (97-106) mmol/L BUN/Creatinine Ratio (9.0-21.6) Random Glucose (70-110) mg/dL ALT (19-67) U/L Total Protein (6.2-8.2) gm/dL Albumin (3.4-5.0) gm/dl Stool Occult Blood Positive H Crossmatch See Detail Laboratory Results WBC 5.5 K/mm3 (4.0-10.5) 01/02/20 10:33 RBC 1.69 M/mm3 (4.7-6.0) L 01/02/20 10:33 Hgb 4.9 gm/dL (13.5-18.0) L* D 01/02/20 10:33 Hct 16.2 % (42.0-52.0) L* D 01/02/20 10:33 MCV 95.9 fl (78-100) 01/02/20 10:33 MCH 29.0 pg (27-31) 01/02/20 10:33 MCHC 30.2 g/dl (32-36) L 01/02/20 10:33 RDW 17.0 % (11.5-14.0) H 01/02/20 10:33 Plt Count 155 K/mm3 (150-450) 01/02/20 10:33 MPV 10.1 fl (8-11.3) 01/02/20 10:33 Immature Gran % (Auto) 0.40 % (0.001-0.429) 01/02/20 10:33 Immature Gran # (Auto) 0.02 K/mm3 (0.000-0.0310) 01/02/20 10:33 Neutrophils % 75.0 % (42-75.0) 01/02/20 10:33 Lymphocytes % 15.8 % (20-51) L 01/02/20 10:33 Monocytes % 7.2 % (0.0-9) 01/02/20 10:33 Eosinophils % 1.4 % (0.0-3.0) 01/02/20 10:33 Basophils % 0.2 % (0.0-1.0) 01/02/20 10:33 Nucleated RBC % 0.0 k/mm3 (0-1) 01/02/20 10:33 Neutrophils # 4.1 K/mm3 (1.3-6.0) 01/02/20 10:33 Lymphocytes # 0.87 k/mm3 (1.5-3.5) L 01/02/20 10:33 Monocytes # 0.4 k/mm3 (0.0-1.0) 01/02/20 10:33 Eosinophils # 0.1 k/mm3 (0.0-0.7) 01/02/20 10:33 Absolute Basophils 0.0 k/mm3 (0.0-0.1) 01/02/20 10:33 PT 10.8 Seconds (9.1-10.7) H 01/02/20 10:33 INR (Anticoag Therapy) 1.09 INR (0.92-1.08) H 01/02/20 10:33 PTT ([place]) 21.7 Seconds (24-32) L 01/02/20 10:33 Sodium 143 mmol/L (132-142) H 01/02/20 10:33 Plasma Sodium 143 mmol/L (130-142) H 01/02/20 10:33 Potassium 3.2 mmol/L (3.4-4.6) L 01/02/20 10:33 Chloride 108 mmol/L (97-106) H 01/02/20 10:33 Carbon Dioxide 27.5 mmol/L (24-32.6) 01/02/20 10:33 Anion Gap 10.7 mmol/L (6.8-13.8) 01/02/20 10:33 BUN 20 mg/dL (6-23) 01/02/20 10:33 Creatinine 0.68 mg/dL (0.4-1.4) 01/02/20 10:33 Est GFR (Non-Af Amer) 129 mL/min (60-130) D 01/02/20 10:33 BUN/Creatinine Ratio 29.4 (9.0-21.6) H 01/02/20 10:33 Random Glucose 125 mg/dL (70-110) H 01/02/20 10:33 Calcium 8.9 mg/dL (7.9-10.9) 01/02/20 10:33 Calcium Adj for Albumin 9.7 mg/dL (8.4-10.2) 01/02/20 10:33 Total Bilirubin 0.2 mg/dL (0.0-1.1) 01/02/20 10:33 AST 23 U/L (0-48) 01/02/20 10:33 ALT 14 U/L (19-67) L 01/02/20 10:33 Alkaline Phosphatase 69 U/L (50-170) 01/02/20 10:33 Ammonia Less than 17.0 mcmol/L (11-35) 01/02/20 10:33 Total Protein 5.6 gm/dL (6.2-8.2) L 01/02/20 10:33 Albumin 2.6 gm/dl (3.4-5.0) L 01/02/20 10:33 Amylase 49 U/L (25-115) 01/02/20 10:33 Lipase 344 U/L (73-393) 01/02/20 10:33 Stool Occult Blood Positive H 01/02/20 10:53 Ethyl Alcohol 3.0 mg/dL (0.0-10.0) 01/02/20 10:33 Blood Type A Positive 01/02/20 10:35 Antibody Screen Negative 01/02/20 10:35 Crossmatch See Detail 01/02/20 10:35 Assessment/Plan - Assessment/Plan (1) Gastrointestinal bleed Assessment: He has been passing black and bloody stools for a week, and Hemoccult was positive in the ER. Hemoglobin is down to 4.9. Currently transfusing 2 units. He needed to have another bowel movement at the end of my exam, so anticipate he likely is still bleeding. Dr. Marx has been consulted for possible endoscopy. He was initially hypotensive, but this improved after normal saline bolus. Anticipate his vitals will normalize after the administration of blood products. The [place]ox[place] he has been taking could be a possible source, as it contains aspirin. He has a history of alcoholism, but he has not drank in the last couple of months. IV protonix has also been started. Problem: Acute Qualifiers: GI bleed type/associated pathology: unspecified gastrointestinal hemorrhage type Qualified Code(s): K92.2 - Gastrointestinal hemorrhage, unspecified (2) Anemia Assessment: Hemoglobin of 4.9. Chart review shows his baseline hemoglobin appears to be around 8.5. Will administer 2 units and monitor serial hemoglobins. Problem: Acute (3) History of alcoholism Assessment: He reports stopping alcohol use 2 months prior. He has multiple medications on his home med list that are for cirrhosis. Ammonia level and ETOH are not elevated. Problem: Acute
[2020-01-02 13:24] LABS: Urine Appearance Clear (CLEAR); Urine Bilirubin Negative (NEGATIVE); Urine Blood Negative /ul (NEGATIVE); Urine Color Yellow; Urine Ketone Negative (NEGATIVE); Urine Specific Gravity 1.005 SP.GR. (1.005-1.030)
[2020-01-02 13:25] LABS: Urine Bacteria None Seen; Urine Nitrite Negative (NEGATIVE); Urine Protein Negative (NEGATIVE); Urine RBC None Seen /hpf (0-5); Urine Urobilinogen Normal (NORMAL); Urine WBC 0-5 /hpf (0-5)
[2020-01-02] MEDS ORDERED: LIDOCAINE HCL 20 ML VIAL ONE (13:30)
[2020-01-02] MEDS ORDERED: PROPOFOL VIAL IV ONE (13:30)
--- NOTE | 2020-01-02 13:35 | CONS ---
[facility] - General Date of Service: 01/02/20 Source: patient, family, RN/MD, RN notes reviewed, old records Exam Limitations: no limitations - History of Present Illness Timing/Duration: 1 week Severity: moderate Associated Symptoms: other - GERD, dysphagia, diarrhea and black stools Allergies/Adverse Reactions: Allergies amlodipine Allergy (Severe, Verified 01/02/20 09:34) Retained water and bruising and severe leg cramping Home Medications: Home Medications Medication Instructions Recorded Last Taken LORazepam [Ativan] 0.5 mg PO TID PRN 01/02/20 Unknown Procedures Administration of [id number]-[id number], combined (07/08/13) Application of splint (11/12/14) Drainage of Peritoneal Cavity, Percutaneous Approach, Diagnostic (11/06/19) Removal of ureterostomy tube and ureteral catheter (07/14/13) Transfusion of Nonautologous Red Blood Cells into Peripheral Vein, Percutaneous Approach (11/06/19) Medications - Medications Current Medications: Current Medications Pantoprazole Sodium 40 mg/ (Sodium Chloride) 100 mls @ 400 mls/hr IV Q24H AZEEM Stop: 02/01/20 12:16 Last Infusion: 01/02/20 12:52 Dose: Infused Documented by: He has a list of the D/C meds from his hospital stay in October, however he ran out of meds about 2 weeks ago. He used to take Omeprazole for GERD, but stopped that about 2 weeks ago as well--about the time his GERD got worse and diarrhea started Review of Systems - Review of Systems Generalized/Overall Review: Present: Weakness. Absent: Chills, Fever EENTM: Present: No Symptoms Reported Respiratory: Absent: Cough, Shortness of Breath Cardiac: Absent: Chest Pain, Palpitations Abdominal: Present: Abdominal Pain - RLQ, chronic, Diarrhea. Absent: Vomiting, Hematemesis Genitourinary: Present: No Symptoms Reported Musculoskeletal: Present: Back Pain, Neck Pain, Other - toe and foot pain Neurological: Present: No Symptoms Reported, Anxiety Skin: Present: Other - bruises more easily last 1 year or so Endocrine: Present: No Symptoms Reported Misc: All systems neg except as marked Physical Examination - Exam Vital Signs: Vital Signs - Last Taken Temp 37.5 C 01/02/20 12:03 Pulse 104 H 01/02/20 13:07 Resp 16 01/02/20 13:07 BP 117/75 01/02/20 13:07 Pulse Ox 100 01/02/20 13:07 O2 Oxygen Delivery Method Room Air Constitutional: Present: Alert, Oriented x3, Cooperative, Well nourished, Mild distress ENT Exam: Present: normal ENT inspection Eye Exam: bilateral eye: normal inspection Neck: Present: full range of motion, normal inspection Respiratory: Present: normal breath sounds Cardiovascular/Chest: Present: regular rate, rhythm, no JVD Abdomen: Present: soft, nontender - reports mild tenderness (variable) RLQ /Rectal: Present: Exam deferred Extremity: Present: normal range of motion, normal inspection, no pedal edema, no calf tenderness Skin Exam: Present: pallor, other - linear skin trauma left forearm Neurologic: Present: platinum and palladium kettle tender II-XII nml as tested, normal cerebellar test, alert, other - appears tired, slow speech Appearance: Present: appropriate appearance, appropriate insight Eye contact: Present: cooperative, good eye contact Thoughts: Present: normal thought pattern - Results and Findings: Lab/Microbiology results last 24 hrs: Abnormal/Pending Laboratory Last 24 HRS 01/02/20 01/02/20 01/02/20 10:53 10:35 10:33 RBC Hgb Hct MCHC RDW Lymphocytes % Lymphocytes # PT INR (Anticoag Therapy) PTT (Anthony) Sodium 143 H Plasma Sodium 143 H Potassium 3.2 L Chloride 108 H BUN/Creatinine Ratio 29.4 H Random Glucose 125 H ALT 14 L Total Protein 5.6 L Albumin 2.6 L Stool Occult Blood Positive H Crossmatch See Detail 01/02/20 01/02/20 10:33 10:33 RBC 1.69 L Hgb 4.9 L* D Hct 16.2 L* D MCHC 30.2 L RDW 17.0 H Lymphocytes % 15.8 L Lymphocytes # 0.87 L PT 10.8 H INR (Anticoag Therapy) 1.09 H PTT (Anthony) 21.7 L Sodium Plasma Sodium Potassium Chloride BUN/Creatinine Ratio Random Glucose ALT Total Protein Albumin Stool Occult Blood Crossmatch - Assessments/Findings (1) Gastrointestinal bleed Diagnosis(s): Most likely UGI bleeding. Has GERD and could have gastritis or ulcer, but with liver disease need to consider varices. His Hgb was chronically around 8gm since 2014, down to 7.9 in October transfused 1 unit to 9.4. Now 4.9 Pamphlets on GERD and EGD reviewed and given. Rationale for EGD was explained along with risk and possible complications. After an interactive discussion, his questions were answered to his apparent satisfaction and informed consent for EGD obtained. Problem: Acute Qualifiers: GI bleed type/associated pathology: unspecified gastrointestinal hemorrhage type Qualified Code(s): K92.2 - Gastrointestinal hemorrhage, unspecified
--- NOTE | 2020-01-02 13:40 | ANES ---
Anesthesia Pre Procedure Eval Vitals/Labs: Last Vital Signs Temp 37.7 C 01/02/20 13:28 Pulse 89 01/02/20 13:28 Resp 14 01/02/20 13:28 BP 130/86 01/02/20 13:28 Pulse Ox 100 01/02/20 13:28 HOME MEDICATIONS LORazepam [Ativan] 0.5 mg PO TID PRN 01/02/20 [Last Taken Unknown] Allergies/Adverse Reactions: Allergies Allergy/AdvReac Type Severity Reaction Status Date / Time amlodipine Allergy Severe Verified 01/02/20 09:34 - Planned Procedure Planned Procedure: Symptomatic anemia GI Bleed Medication List Reviewed:: Yes Allergies Verified: Yes Medical History (Last Reviewed 01/02/20 @ 13:39 by Marcial Marvin CRNA) Liver disease HTN (hypertension) Hypokalemia Surgical History (Last Reviewed 01/02/20 @ 13:39 by Marcial Marvin CRNA) No pertinent past surgical history Family History (Last Reviewed 01/02/20 @ 13:39 by Marcial Marvin CRNA) Mother Breast cancer Father Hypertension - Family Anesthesia History Family History:: no untoward family reactions to anesthesia - Airway/Neck/Teeth Within Normal Limits:: Yes Teeth Condition: intact Neck Exam: full range of motion Mallampatti Score: 2 Thyromental (T-M) distance: > 6 cm Mandibulo Hyoid distance: > 3 cm - Respiratory Respiratory Physical: lungs clear Smoking Status: Current every day smoker Sleep Apnea currently treated: No Sleep Apnea by current assessment: No - Cardiovascular Cardiac History: hypertension Tolerate Activity: Fair Heart Sounds: S1 & S2, Regular - Gastrointestinal NPO since: 0700 - Anesthesia Assessment and Plan ASA Class: PS, II, E Anesthesia Type Plan: MAC Planned difficult intubation/equipment available: No
[2020-01-02] MEDS ORDERED: RINGER'S SOLUTION,LACTATED 1,000 ML IV PRN (13:51)
--- NOTE | 2020-01-02 14:26 | OR ---
Operative Report - Dictated Report Narrative: Operative Report Date of operation: 01/02/2020 Preoperative diagnosis: GI bleeding, anemia Postoperative diagnosis: Same (no active site identified) Operation: EGD with biopsies Surgeon: Dr Marx Anesthesia: CLIF Marvin CRNA Indications for procedure: The patient is a 54-year-old male who presented to the emergency room with a 1-1/2-week history of black diarrhea and increased GERD symptoms. He has a long history of GERD. He has alcoholic liver disease however quit drinking in October. His hemoglobin has decreased from 9.4-4.9 Findings: Empty stomach, no active bleeding site identified. Mild esophagitis and gastropathy. No esophageal varices. No duodenal ulcer Narrative of procedure: The patient was identified preoperatively, and prior to the administration of anesthetic a multidisciplinary timeout was observed With the patient in the recumbent position, a bite-block was placed, intravenous sedation administered, and the patient's eyes covered with a towel. The flexible fiberoptic gastroscope was advanced into the posterior pharynx which appeared normal. There was no blood seen in the nasopharynx. The supraglottic larynx appeared normal. The cords appeared normal, moved well, and opposed in the midline. The scope was advanced under direct vision into the proximal esophagus which appeared normal. The esophagus appeared freely distensible with normal mucosa. There were no esophageal varices. The esophageal mucosa appeared normal down to the gastroesophageal junction which was fairly sharp with only mild inflammation. The GE junction appeared normally distensible. The scope was advanced into the stomach which was insufflated with air. The stomach was empty. Aside from 2 linear erythematous areas in the antrum the gastric mucosa appeared pale but otherwise normal including a retroflexed view of the gastric fundus. The scope was redirected toward the pylorus. The pylorus appeared patent. The scope was advanced into the duodenal bulb which appeared normal with exception of mild erythema. The scope was advanced further to the horizontal portion of the duodenum which appeared normal, specifically the villous architecture appeared well preserved and clear bile was present. The scope was slowly withdrawn through the duodenal bulb with confirmation that no active ulcer was present. The scope was withdrawn into the stomach and outside sales representative insurance biopsies of gastric mucosa obtained for CLOtest and pathology. The biopsy sites were seen to be hemostatic. The insufflated air was removed, the scope withdrawn from the patient, and the procedure terminated. The patient tolerated the anesthetic and procedure well without complication and was transferred to the floor awake and in stable condition. reviewed and electronically signed
[2020-01-02] MEDS ORDERED: LORazepam 0.5 MG TABLET PO PRN (18:31)
[2020-01-02] MEDS ORDERED: NORMAL SALINE 1,000 ML IV PRN (19:56)
[2020-01-02 22:06] LABS: Hematocrit 21.5 % (42.0-52.0); Hemoglobin 6.9 gm/dL (13.5-18.0)
[2020-01-03 03:27] LABS: Mean Cell Volume 92.6 fl (78-100); Mean Corpuscular Hemoglobin 29.7 pg (27-31); Mean Corpuscular Hgb Conc 32.1 g/dl (32-36); Mean Platelet Volume 10.8 fl (8-11.3); Neutrophil # 3.2 K/mm3 (1.3-6.0); Platelet Count 134 K/mm3 (150-450); Red Blood Count 2.56 M/mm3 (4.7-6.0); Red Cell Distribution Width 15.5 % (11.5-14.0); White Blood Count 4.9 K/mm3 (4.0-10.5)
[2020-01-03 03:29] LABS: Hematocrit 23.7 % (42.0-52.0); Hemoglobin 7.6 gm/dL (13.5-18.0)
--- NOTE | 2020-01-03 08:33 | PN ---
Dictated Progress Note - Date and Time Seen: Date: 01/03/20 Time: 08:29 - Progress Note Narrative: Vital Signs - Last Taken Temp 37.3 C 01/03/20 06:19 Pulse 83 01/03/20 06:19 Resp 20 01/03/20 06:19 BP 134/91 H 01/03/20 06:19 Pulse Ox 98 01/03/20 06:19 Abnormal/Pending Laboratory Last 24 HRS 01/03/20 01/02/20 01/02/20 03:25 22:00 10:53 RBC 2.56 L Hgb 7.6 L* 6.9 L* D Hct 23.7 L* 21.5 L* D MCHC RDW 15.5 H Plt Count 134 L Lymphocytes % Lymphocytes # 1.17 L PT INR (Anticoag Therapy) PTT (Anthony) Sodium Plasma Sodium Potassium Chloride BUN/Creatinine Ratio Random Glucose ALT Total Protein Albumin Stool Occult Blood Positive H Crossmatch 01/02/20 01/02/20 01/02/20 10:35 10:33 10:33 RBC Hgb Hct MCHC RDW Plt Count Lymphocytes % Lymphocytes # PT 10.8 H INR (Anticoag Therapy) 1.09 H PTT ([place]) 21.7 L Sodium 143 H Plasma Sodium 143 H Potassium 3.2 L Chloride 108 H BUN/Creatinine Ratio 29.4 H Random Glucose 125 H ALT 14 L Total Protein 5.6 L Albumin 2.6 L Stool Occult Blood Crossmatch See Detail 01/02/20 10:33 RBC 1.69 L Hgb 4.9 L* D Hct 16.2 L* D MCHC 30.2 L RDW 17.0 H Plt Count Lymphocytes % 15.8 L Lymphocytes # 0.87 L PT INR (Anticoag Therapy) PTT ([place]) Sodium Plasma Sodium Potassium Chloride BUN/Creatinine Ratio Random Glucose ALT Total Protein Albumin Stool Occult Blood Crossmatch His vital signs have remained stable (hypertenisive BP's) Laboratory Tests 01/02/20 01/02/20 01/03/20 10:33 22:00 03:25 Hgb 4.9 L* D 6.9 L* D 7.6 L* He has not had any further loose stools to indicate ongoing bleeding. Please contact me with any questions.
--- NOTE | 2020-01-03 09:10 | PN ---
Subjective - Date and Time Seen Date: 01/03/20 Time: 09:00 Subjective Narrative: He feels ok this morning. Hasn't had any BMs since leaving the ED yesterday afternoon. Still has some RLQ pain. Objective - Review of Systems Generalized/Overall Review: Denies: Fever Respiratory: Denies: Shortness of Breath Cardiac: Denies: Chest Pain Abdominal: Reports: Abdominal Pain - RLQ. Denies: Vomiting, Bright blood from rectum Genitourinary Symptoms: Reports: No Symptoms Reported Musculoskeletal Complaints: Reports: No Symptoms Reported Neurological: Reports: No Symptoms Reported - Vitals Vitals: Last Vital Signs Temp 37.3 C 01/03/20 06:19 Pulse 83 01/03/20 06:19 Resp 20 01/03/20 06:19 BP 134/91 H 01/03/20 06:19 Pulse Ox 98 01/03/20 06:19 - Abnormal Lab Findings Abnormal Lab Findings: Abnormal Lab Results 01/02/20 01/02/20 01/02/20 Range/Units 10:33 10:33 10:33 RBC 1.69 L (4.7-6.0) M/mm3 Hgb 4.9 L* D (13.5-18.0) gm/dL Hct 16.2 L* D (42.0-52.0) % MCHC 30.2 L (32-36) g/dl RDW 17.0 H (11.5-14.0) % Plt Count (150-450) K/mm3 Lymphocytes % 15.8 L (20-51) % Lymphocytes # 0.87 L (1.5-3.5) k/mm3 PT 10.8 H (9.1-10.7) Seconds INR (Anticoag Therapy) 1.09 H (0.92-1.08) INR PTT ([place]) 21.7 L (24-32) Seconds Sodium 143 H (132-142) mmol/L Plasma Sodium 143 H (130-142) mmol/L Potassium 3.2 L (3.4-4.6) mmol/L Chloride 108 H (97-106) mmol/L BUN/Creatinine Ratio 29.4 H (9.0-21.6) Random Glucose 125 H (70-110) mg/dL ALT 14 L (19-67) U/L Total Protein 5.6 L (6.2-8.2) gm/dL Albumin 2.6 L (3.4-5.0) gm/dl Stool Occult Blood Crossmatch 01/02/20 01/02/20 01/02/20 Range/Units 10:35 10:53 22:00 RBC (4.7-6.0) M/mm3 Hgb 6.9 L* D (13.5-18.0) gm/dL Hct 21.5 L* D (42.0-52.0) % MCHC (32-36) g/dl RDW (11.5-14.0) % Plt Count (150-450) K/mm3 Lymphocytes % (20-51) % Lymphocytes # (1.5-3.5) k/mm3 PT (9.1-10.7) Seconds INR (Anticoag Therapy) (0.92-1.08) INR PTT (Anthony) (24-32) Seconds Sodium (132-142) mmol/L Plasma Sodium (130-142) mmol/L Potassium (3.4-4.6) mmol/L Chloride (97-106) mmol/L BUN/Creatinine Ratio (9.0-21.6) Random Glucose (70-110) mg/dL ALT (19-67) U/L Total Protein (6.2-8.2) gm/dL Albumin (3.4-5.0) gm/dl Stool Occult Blood Positive H Crossmatch See Detail 01/03/20 Range/Units 03:25 RBC 2.56 L (4.7-6.0) M/mm3 Hgb 7.6 L* (13.5-18.0) gm/dL Hct 23.7 L* (42.0-52.0) % MCHC (32-36) g/dl RDW 15.5 H (11.5-14.0) % Plt Count 134 L (150-450) K/mm3 Lymphocytes % (20-51) % Lymphocytes # 1.17 L (1.5-3.5) k/mm3 PT (9.1-10.7) Seconds INR (Anticoag Therapy) (0.92-1.08) INR PTT ([place]) (24-32) Seconds Sodium (132-142) mmol/L Plasma Sodium (130-142) mmol/L Potassium (3.4-4.6) mmol/L Chloride (97-106) mmol/L BUN/Creatinine Ratio (9.0-21.6) Random Glucose (70-110) mg/dL ALT (19-67) U/L Total Protein (6.2-8.2) gm/dL Albumin (3.4-5.0) gm/dl Stool Occult Blood Crossmatch - Exam Constitutional: Present: Alert, Cooperative, No distress Respiratory: Present: lungs clear, normal breath sounds, no respiratory distress Cardiovascular/Chest: Present: regular rate, rhythm Abdomen: Present: soft, tender - RLQ Extremity: Absent: lower extremity edema Eye contact: Present: cooperative, avoids eye contact Assessment/Plan - Problems/Diagnosis (1) Gastrointestinal bleed Problem: Acute Qualifiers: GI bleed type/associated pathology: unspecified gastrointestinal hemorrhage type Qualified Code(s): K92.2 - Gastrointestinal hemorrhage, unspecified Narrative: He was admitted yesterday after having 6 days of bloody stools at home. Upper endoscopy was done yesterday, which showed some mild inflammation of the GE junction and mild erythema of the duodenum. He has received 3 U PRBC for symptomatic anemia, and the last two hgb have been stable at 7.6 and 8.0. Continue IV protonix while hospitalized. He'd been on a ppi previously, and ran out a couple of weeks ago. No significant NSAID use. Hx of alcohol abuse, but quit two months ago. He has never had a colonoscopy. It appears he is no longer actively bleeding, so recommend outpatient colonoscopy after DC. (2) Anemia Problem: Chronic Narrative: He has acute symptomatic anemia due to GI bleed, but also appears to have chronic anemia. His baseline hgb appears to be around 8.5. Admission hgb of 4.9 yesterday, and he has received 3 U PRBC. 2 hour post H&H of 7.6 overnight, and 8.0 this morning. No longer hypotensive. Recheck again this afternoon at 1500. Started a clear liquid diet today at lunch, and can further advance if he tolerates it ok. Anticipate DC tomorrow. (3) History of alcoholism Problem: Acute Narrative: He had a hospitalization in October, and quit drinking after DC. He did not have significant electrolyte abnormalities, and does not appear to have ascites on exam. Will not continue lactulose, lasix, or spironolactone after DC.
[2020-01-03 09:22] LABS: Hematocrit 24.8 % (42.0-52.0)
[2020-01-03] MEDS: PANTOPRAZOLE SODIUM 40 MG in NORMAL SALINE 100 ML IV SCH (12:37)
[2020-01-03 15:03] LABS: Hematocrit 24.3 % (42.0-52.0)
[2020-01-03 15:11] LABS: Hemoglobin 7.8 gm/dL (13.5-18.0)
[2020-01-04 06:54] LABS: Hematocrit 24.5 % (42.0-52.0); Mean Cell Volume 91.1 fl (78-100); Mean Corpuscular Hemoglobin 29.7 pg (27-31); Mean Corpuscular Hgb Conc 32.7 g/dl (32-36); Mean Platelet Volume 11.3 fl (8-11.3); Neutrophil # 2.4 K/mm3 (1.3-6.0); Neutrophil % 56.3 % (42-75.0); Platelet Count 167 K/mm3 (150-450); Red Blood Count 2.69 M/mm3 (4.7-6.0); Red Cell Distribution Width 15.3 % (11.5-14.0); White Blood Count 4.2 K/mm3 (4.0-10.5)
[2020-01-04 07:03] LABS: Albumin * 2.5 gm/dl (3.4-5.0); Anion Gap 11.1 mmol/L (6.8-13.8); BUN/Creatinine Ratio 9.2 (9.0-21.6); Bilirubin, Total 0.4 mg/dL (0.0-1.1); Ca. Corrected For Albumin 9.7 mg/dL (8.4-10.2); Calcium * 8.8 mg/dL (7.9-10.9); Carbon Dioxide 25.9 mmol/L (24-32.6); Total Protein 5.7 gm/dL (6.2-8.2)
[2020-01-04] MEDS: PANTOPRAZOLE SODIUM 40 MG in NORMAL SALINE 100 ML IV SCH (12:42)
--- NOTE | 2020-01-04 13:14 | DS ---
(1) Gastrointestinal bleed Problem: Resolved Qualifiers: GI bleed type/associated pathology: unspecified gastrointestinal hemorrhage type Qualified Code(s): K92.2 - Gastrointestinal hemorrhage, unspecified (2) Anemia Problem: Chronic (3) History of alcoholism Problem: Resolved Date of Discharge:: 01/04/20 Hospital Course: Patient with past medical history of previous alcohol use, previous pancreatitis presented to the ER this morning after having blood in his stool for 6 days. Has never had a colonoscopy. He reports having black and bloody stools and some discomfort in his abdomen for last several days. He reports taking Roxane-[place] fairly regularly. Does not take ibuprofen because it gave him kidney difficulties a few years ago. Quit drinking alcohol 2 months ago. Does have some right lower quadrant pain. He states he has had a bit of a weak stream with urination lately. In the ER, his hemoglobin was found to be 4.9. His blood pressure initially was decreased with systolic in the 60s and 70s, but improved with normal saline bolus. Maximum heart rate was 106. He was given a total of 3 U PRBC, and his hgb stayed around 8.0. He underwent upper endoscopy with Dr. Marx, which did not reveal an active bleed. His vitals normalized, and he was able to tolerate a diet. He had one dark stool the night before DC. Procedures Performed: see notes below - EGD with biopsies Results and Findings: Lab Pending Results 01/02/20 10:33: WBC 5.5, RBC 1.69 L, Hgb 4.9 L* D, Hct 16.2 L* D, MCV 95.9, MCH 29.0, MCHC 30.2 L, RDW 17.0 H, Plt Count 155, MPV 10.1, Immature Gran % (Auto) 0.40, Immature Gran # (Auto) 0.02, Neutrophils % 75.0, Lymphocytes % 15.8 L, Monocytes % 7.2, Eosinophils % 1.4, Basophils % 0.2, Nucleated RBC % 0.0, Neutrophils # 4.1, Lymphocytes # 0.87 L, Monocytes # 0.4, Eosinophils # 0.1, Absolute Basophils 0.0 01/02/20 10:33: PT 10.8 H, INR (Anticoag Therapy) 1.09 H, PTT (Anthony) 21.7 L 01/02/20 10:33: Sodium 143 H, Plasma Sodium 143 H, Potassium 3.2 L, Chloride 108 H, Carbon Dioxide 27.5, Anion Gap 10.7, BUN 20, Creatinine 0.68, Est GFR (Non-Af Amer) 129 D, BUN/Creatinine Ratio 29.4 H, Random Glucose 125 H, Calcium 8.9, Calcium Adj for Albumin 9.7, Total Bilirubin 0.2, AST 23, ALT 14 L, Alkaline Phosphatase 69, Total Protein 5.6 L, Albumin 2.6 L, Amylase 49, Lipase 344, Ethyl Alcohol 3.0 01/02/20 10:33: Ammonia Less than 17.0 01/02/20 10:35: Blood Type A Positive, Antibody Screen Negative, Crossmatch See Detail 01/02/20 10:53: Stool Occult Blood Positive H 01/02/20 12:48: Urine Color Yellow, Urine Appearance Clear, Urine pH 6.0, Ur Specific [place] 1.005, Urine Protein Negative, Urine Glucose (UA) Negative, Urine Ketones Negative, Urine Blood Negative, Urine Nitrate Negative, Urine Bilirubin Negative, Urine Urobilinogen Normal, Ur Leukocyte Esterase Negative, Urine RBC None seen, Urine WBC 0-5, Ur Epithelial Cells 0-5, Urine Bacteria None seen, Urine Culture Comments No culture indicated 01/02/20 14:13: Pathology Specimen Spec to path 01/02/20 22:00: Hgb 6.9 L* D, Hct 21.5 L* D 01/03/20 03:25: WBC 4.9, RBC 2.56 L, Hgb 7.6 L*, Hct 23.7 L*, MCV 92.6, MCH 29.7, MCHC 32.1, RDW 15.5 H, Plt Count 134 L, MPV 10.8, Immature Gran % (Auto) 0.20, Immature Gran # (Auto) 0.01, Neutrophils % 64.0, Lymphocytes % 23.7, Monocytes % 8.9, Eosinophils % 2.8, Basophils % 0.4, Nucleated RBC % 0.0, Neutrophils # 3.2, Lymphocytes # 1.17 L, Monocytes # 0.4, Eosinophils # 0.1, Absolute Basophils 0.0 01/03/20 09:20: Hgb 8.0 L, Hct 24.8 L 01/03/20 14:58: Hgb 7.8 L*, Hct 24.3 L 01/04/20 06:30: Sodium 142, Plasma Sodium 142, Potassium 3.0 L, Chloride 108 H, Carbon Dioxide 25.9, Anion Gap 11.1, BUN 6 D, Creatinine 0.65, Est GFR (Non-Af Amer) 136 H, BUN/Creatinine Ratio 9.2, Random Glucose 103, Calcium 8.8, Calcium Adj for Albumin 9.7, Total Bilirubin 0.4, AST 21, ALT 14 L, Alkaline Phosphatase 77, Total Protein 5.7 L, Albumin 2.5 L 01/04/20 06:30: WBC 4.2, RBC 2.69 L, Hgb 8.0 L, Hct 24.5 L, MCV 91.1, MCH 29.7, MCHC 32.7, RDW 15.3 H, Plt Count 167, MPV 11.3, Immature Gran % (Auto) 0.20, Immature Gran # (Auto) 0.01, Neutrophils % 56.3, Lymphocytes % 27.0, Monocytes % 10.7 H, Eosinophils % 5.3 H, Basophils % 0.5, Nucleated RBC % 0.0, Neutrophils # 2.4, Lymphocytes # 1.13 L, Monocytes # 0.5, Eosinophils # 0.2, Absolute Basophils 0.0 Discharge Location: Home Disposition: Home self-care Condition: Stable Discharge Activity: Activity as tolerated Discharge Diet: Resume usual diet Referrals: Swapna Mehta DO [Staff Physician] - One Week Rosana Marx MD [Staff Physician] - Two Weeks (potential colonoscopy. Patient has never had one) Prescriptions (Any new or edited meds): Pantoprazole Sodium [Protonix] 40 mg PO DAILY #30 tablet. Transmission Status: Pending to [id number] Complete Home Medications List: Complete Home Medication List: LORazepam [Ativan] 0.5 mg PO TID PRN 01/02/20 Pantoprazole Sodium [Protonix] 40 mg PO DAILY #30 tablet. 01/04/20
[2020-01-04 15:05] VITALS: BP 145/92
== END 2020-01-04 15:30 | disposition home or self-care (01) | DRG 378 ==
LOC: ER 09:19 → MS 12:02 → SUR 12:54 → MS 14:23
PROVIDERS: ADMIT Family Medicine; ATTEND Family Medicine
CPT/HCPCS: 36415; 74019; 74020; 80053; 81001; 82140; 82150; 82272; 83690; 85014; 85018; 85025; 85610; 85730; 86850; 87081; 88305; 88312; 88888; 96361; 96374; 96375; 99285; J2405; P9016

== ENCOUNTER 2020-08-31 12:23 | Observation (INO) ==
[2020-08-31] MEDS ORDERED: ORPHENADRINE CITRATE 30 MG/ML VIAL IM ONE (12:45)
[2020-08-31] MEDS ORDERED: KETOROLAC TROMETHAMINE 30 MG/ML VIAL IM ONE (12:45)
[2020-08-31] MEDS ORDERED: NORMAL SALINE 1,000 ML IV ONE ×2 (13:39→15:54)
[2020-08-31] MEDS ORDERED: MORPHINE SULFATE 4 MG/ML SYRG IV ONE (13:39)
[2020-08-31 13:58] LABS: Hematocrit 32.5 % (42.0-52.0); Hemoglobin 9.9 gm/dL (13.5-18.0); Mean Cell Volume 78.9 fl (78-100); Mean Corpuscular Hgb Conc 30.5 g/dl (32-36); Mean Platelet Volume 9.3 fl (8-11.3); Neutrophil # 6.9 K/mm3 (1.3-6.0); Neutrophil % 74.4 % (42-75.0); Platelet Count 268 K/mm3 (150-450); Red Blood Count 4.12 M/mm3 (4.7-6.0); Red Cell Distribution Width 21.9 % (11.5-14.0); White Blood Count 9.3 K/mm3 (4.0-10.5)
[2020-08-31 14:10] LABS: Albumin * 3.5 gm/dl (3.4-5.0); Anion Gap 24.9 mmol/L (6.8-13.8); BUN/Creatinine Ratio 27.8 (9.0-21.6); Bilirubin, Total 0.6 mg/dL (0.0-1.1); Ca. Corrected For Albumin 9.3 mg/dL (8.4-10.2); Calcium * 9.2 mg/dL (7.9-10.9); Carbon Dioxide 17.4 mmol/L (24-32.6); Potassium 3.3 mmol/L (3.4-4.6); Total Protein 7.5 gm/dL (6.2-8.2)
[2020-08-31] MEDS ORDERED: DIATRIZOATE MEGLUMINE, SODIUM 30 ML BTL PO ONE (14:20)
[2020-08-31] MEDS ORDERED: DIATRIZOATE MEGLUMINE, SODIUM 30 ML BTL ONE (14:21)
[2020-08-31] MEDS ORDERED: LORazepam 2 MG/ML DISP.SYRIN IV ONE ×2 (14:21→17:15)
--- NOTE | 2020-08-31 14:45 | ERNOTE ---
Trauma/Assault HPI - Narrative Date of Service: 08/31/20 - General Stated Complaint: FALL RIB PAIN Time Seen by Provider: 08/31/20 12:40 Source: patient, family Exam Limitations: clinical condition - Immun/Allergies/Home Medications Immunizations: IMMUNIZATION HX Immunizations Up to Date Yes History of Influenza Vaccine No Hx Pneumococcal Vaccination No Allergies/Adverse Reactions: Allergies amlodipine Allergy (Severe, Verified 08/31/20 12:37) Retained water and bruising and severe leg cramping Home Medications: HOME MEDICATIONS Omeprazole 20 mg PO DAILY 08/31/20 [Last Taken Unknown] - History of Present Illness Narrative: Patient presents to the ED for severe left side pain after a fall. He fell last night backwards down [address] stairs. Landed on edge of table. Pain left lateral and posterior ribs. Could not stand the pain over night. He relates no abdominal pain. No head injury. No neck pain. No LOC or extremity pain. Apparently he was fairly intoxicated last night and did not want to come in. Denies extremity injury. Location Occurred: Reports: home Pain Location: Reports: other - left chest Method of Injury: Reports: direct blow, fall Severity: severe Modifying Factors - (Improves): Reports: other - nothing Modifying Factors - (Worsens): Reports: movement, other - palpation, breathing Loss of Consciousness: Reports: no loss of consciousness Associated Symptoms - Trauma: Reports: denies symptoms Review of Systems - Review of Systems Constitutional: Absent: fever EYE: Present: no symptoms reported ENT: Present: no symptoms reported Respiratory: Absent: shortness of breath Cardiology: Present: See HPI Gastrointestinal/Abdominal: Absent: abdominal pain Genitourinary: Present: no symptoms reported Neurological: Absent: weakness All Other Systems: All systems neg except as marked Medical History (Last Reviewed 08/31/20 @ 14:38 by Marcial Arroyo MD) HTN (hypertension) Hypokalemia Liver disease Surgical History: Surgical History (Last Reviewed 08/31/20 @ 14:38 by Marcial Arroyo MD) History of esophagogastroduodenoscopy Family History: Family History (Last Reviewed 08/31/20 @ 14:38 by Marcial Arroyo MD) Mother Breast cancer Father Hypertension Social History: (Last Reviewed 08/31/20 @ 14:38 by Marcial Arroyo MD) Tobacco: Smoking Status: Current every day smoker tobacco type: cigarettes Smoking cigarettes per day: 10 Alcohol: alcohol intake: current Alcohol type: hard liquor alcohol intake frequency: 3 or more drinks per day Substance Use: substance use type: does not use Physical Exam - Physical Exam General Appearance: Present: alert, no apparent distress Head Exam: Present: normal inspection, no evidence of injury Eye Exam: Normal inspection: bilateral, PERRL: bilateral Ears, Nose, Throat: Present: normal ENT inspection Neck: Present: normal inspection, other - no tenderness of the posterior cervical spine, no clinical suggestion of fracture or ligamentous injury Respiratory: Present: no respiratory distress, normal breath sounds, other - Left lateral and posterior chest tenderness Cardiovascular/Chest: Present: regular rate, rhythm, normal peripheral pulses Gastrointestinal/Abdominal: Present: normal bowel sounds, nontender, nondistended, soft Back Exam: Present: no vertebral tenderness Extremity Exam: Present: non-tender Neurological Exam: Present: alert, no motor/sensory deficits Skin Exam: Present: normal color, warm/dry Progress - Results and Orders Patient's Lab Results:: I have reviewed the patient's lab results. - Vital Signs Patient's Vital Signs:: I have reviewed the patient's vital signs. Vital Signs: Vital Signs 08/31/20 12:32 08/31/20 14:05 Temperature 37.3 C Pulse Rate 89 74 Respiratory Rate 20 12 Blood Pressure 140/85 H 95/44 O2 Sat by Pulse Oximetry 98 92 L - X-Ray X-Ray #1 X-Ray: chest Interpretation: Interp. by tx X-ray Comments: I personally reviewed x-ray images as well as official radiology report X-Ray #2 X-Ray: ribs Interpretation: Interp. by tx X-ray Comments: I personally reviewed x-ray images as well as official radiology report - CT/Ultrasound CT/Ultrasound Narrative: I reviewed official radiology reports for CT abd/Pelvis and chest. - Progress/Reassessment Chief Complaint: Fall Progress Note-Subjective: 08/31/20 14:41 IV placed. Patient has significant rib fractures and PTX. Given his pain and condition he will need observation. I spoke with Dr Ford who will admit, she requests Surgery consultation. I spoke with Dr Marx who will see the patient. I will order Covid and CT chest/abd/pelvis prior to admission. Patient is agreeable. Departure Clinical Impression: Fall down stairs, Pneumothorax, Multiple rib fractures, Alcohol intoxication, Intractable pain, Pulmonary contusion - Departure Disposition: Still a patient Condition: Fair Critical Care Time - Critical Care Critical Time Spent:: No
[2020-08-31] MEDS ORDERED: DEXTROSE 50%-WATER 50 ML SYRG IV ONE (15:54)
[2020-08-31] MEDS ORDERED: LORazepam 1 MG TABLET PO PRN ×2 (16:51)
[2020-08-31] MEDS: oxyCODONE HCL/ACETAMINOPHEN 1 TAB TABLET PO PRN ×2 (16:58→22:07)
[2020-08-31 17:07] LABS: Hematocrit 31.1 % (42.0-52.0); Hemoglobin 9.4 gm/dL (13.5-18.0); Mean Cell Volume 79.3 fl (78-100); Mean Corpuscular Hgb Conc 30.2 g/dl (32-36); Mean Platelet Volume 9.6 fl (8-11.3); Neutrophil # 6.2 K/mm3 (1.3-6.0); Neutrophil % 85.7 % (42-75.0); Platelet Count 205 K/mm3 (150-450); Red Blood Count 3.92 M/mm3 (4.7-6.0); Red Cell Distribution Width 21.7 % (11.5-14.0); White Blood Count 7.2 K/mm3 (4.0-10.5)
[2020-08-31 17:25] LABS: Albumin * 3.2 gm/dl (3.4-5.0); Anion Gap 24.8 mmol/L (6.8-13.8); BUN/Creatinine Ratio 24.4 (9.0-21.6); Bilirubin, Total 0.6 mg/dL (0.0-1.1); Ca. Corrected For Albumin 8.8 mg/dL (8.4-10.2); Calcium * 8.5 mg/dL (7.9-10.9); Carbon Dioxide 15.6 mmol/L (24-32.6); Potassium 3.4 mmol/L (3.4-4.6); Total Protein 6.9 gm/dL (6.2-8.2)
--- NOTE | 2020-08-31 17:28 | CONS ---
HPI - General Date of Service: 08/31/20 Source: patient, family, RN/MD, RN notes reviewed, old records Exam Limitations: no limitations - History of Present Illness Initial Comments: He was drinking last night and fell backwards down 4 steps striking his left chest on the corner of a table. He hurt bad and came to the ER. Chest x-ray demonstrates 4 left rib fractures (7 through 10) and a small pneumothorax. CT scan of the chest confirms the fractures and reveals a tiny pneumothorax with some pulmonary contusion a small amount of fluid Timing/Duration: other - He fell last night Severity: moderate Modifying Factors - (Worsens): Reports: movement Modifying Factors - (Improves): Reports: immobilization Associated Symptoms: nausea Allergies/Adverse Reactions: Allergies amlodipine Allergy (Severe, Verified 08/31/20 12:37) Retained water and bruising and severe leg cramping Home Medications: Home Medications Medication Instructions Recorded Last Taken Omeprazole 20 mg PO DAILY 08/31/20 Unknown Procedures Administration of qllglphecm-eewxkge-tvauqgrzh, combined (07/08/13) Application of splint (11/12/14) Drainage of Peritoneal Cavity, Percutaneous Approach, Diagnostic (11/06/19) Excision of Esophagogastric Junction, Via Natural or Artificial Opening Endoscopic, Diagnostic (01/02/20) Removal of ureterostomy tube and ureteral catheter (07/14/13) Transfusion of Nonautologous Red Blood Cells into Peripheral Vein, Percutaneous Approach (01/02/20) Medications - Medications Current Medications: Current Medications Sodium Chloride (Sodium Chloride 0.9%) 1,000 mls @ 150 mls/hr IV .[id number] ONE Stop: 08/31/20 22:33 Last Admin: 08/31/20 17:08 Dose: 150 mls/hr Documented by: Oxycodone/Acetaminophen (Percocet 5 Mg/325 Mg) 1 tab PO Q4H PRN PRN Reason: Moderate Pain (pain scale 4-6) Stop: 09/30/20 16:51 Last Admin: 08/31/20 16:58 Dose: 1 tab Documented by: Review of Systems - Review of Systems Generalized/Overall Review: Absent: Chills, Fever EENTM: Present: No Symptoms Reported Respiratory: Present: Other - Hurts to take a deep breath on the left. Absent: Shortness of Breath Cardiac: Present: No Symptoms Reported Abdominal: Present: No Symptoms Reported, Other - Feels a little nauseated. He does have chronic heartburn with reflux symptoms and occasional dysphagia for solids Genitourinary: Present: No Symptoms Reported Musculoskeletal: Present: Other - Left rib pain Neurological: Present: No Symptoms Reported, Other - He was very intoxicated last night but is clear today Skin: Present: No Symptoms Reported Endocrine: Present: No Symptoms Reported Physical Examination - Exam Vital Signs: Vital Signs - Last Taken Temp 36.5 C 08/31/20 16:44 Pulse 86 08/31/20 16:44 Resp 20 08/31/20 16:44 BP 151/88 H 08/31/20 16:44 Pulse Ox 96 08/31/20 16:44 O2 Oxygen Delivery Method Room Air Comprehensive Narative: 08/31/20 17:22 He is alert oriented cooperative. He is complaining of pain in the left chest in the area of fractured ribs, pain medication has helped Constitutional: Present: Alert, Oriented x3, Cooperative, Well developed, Well nourished, Moderate distress ENT Exam: Present: normal ENT inspection Eye Exam: bilateral eye: normal inspection Neck: Present: full range of motion, normal inspection Respiratory: Present: decreased breath sounds, other - He has tenderness left lower chest. No crepitus Cardiovascular/Chest: Present: normal peripheral pulses, regular rate, rhythm Abdomen: Present: soft, nontender /Rectal: Present: Exam deferred Extremity: Present: normal range of motion, no pedal edema, no calf tenderness Skin Exam: Present: normal color, warm/dry Neurologic: Present: repairer and checker II-XII nml as tested, no motor/sensory deficits Appearance: Present: appropriate appearance, other - Somewhat slow speech Eye contact: Present: good eye contact - Variable at first, but improves later in the interview Thoughts: Present: normal thought pattern, no apparent hallucination, normal mood /affect - Results and Findings: Lab/Microbiology results last 24 hrs: Abnormal/Pending Laboratory Last 24 HRS 08/31/20 08/31/20 08/31/20 17:00 13:51 13:51 RBC 3.92 L Hgb 9.4 L Hct 31.1 L MCH 24.0 L MCHC 30.2 L RDW 21.7 H Neutrophils % 85.7 H Lymphocytes % 8.4 L Neutrophils # 6.2 H Lymphocytes # 0.60 L Sodium 144 H Plasma Sodium 143 H Potassium 3.3 L Carbon Dioxide 17.4 L Anion Gap 24.9 H BUN/Creatinine Ratio 27.8 H Random Glucose 54 L AST 49 H Ethyl Alcohol 170.0 H 08/31/20 13:51 RBC 4.12 L Hgb 9.9 L Hct 32.5 L MCH 24.0 L MCHC 30.5 L RDW 21.9 H Neutrophils % Lymphocytes % 17.0 L Neutrophils # 6.9 H Lymphocytes # Sodium Plasma Sodium Potassium Carbon Dioxide Anion Gap BUN/Creatinine Ratio Random Glucose AST Ethyl Alcohol CT scan of the chest reveals fractures on the left ribs 7 through 10. Small pulmonary contusion. Very small pneumothorax and minimal fluid. No subcutaneous emphysema no other intrathoracic injuries. CT scan of the a bdomen and pelvis reveals severe liver disease but no acute findings. His previous ascites is not present - Assessments/Findings (1) Fall down stairs Problem: Acute (2) Pneumothorax Diagnosis(s): The pneumothorax is very small. With the amount of time that has elapsed since his injury, it would be appropriate to observe this. We will order chest x-ray for the morning Problem: Acute (3) Multiple rib fractures Diagnosis(s): Fractures of ribs 7 through 10 the left. Will provide adequate pain relief Problem: Acute (4) Alcoholic liver disease Problem: Acute (5) Chronic GERD Diagnosis(s): Will add Protonix and Zofran for nausea Problem: Acute
[2020-08-31] MEDS ORDERED: ONDANSETRON HCL/PF 2 MG/ML VIAL IV PRN (17:29)
[2020-08-31] MEDS ORDERED: FLU VACC QS2020-21(6MOS UP)/PF 60 MCG/0.5 ML SYRINGE IM ONE (18:00)
--- NOTE | 2020-08-31 18:25 | HP ---
Chief Complaint - Chief Complaint Date of Service: 08/31/20 Time of Service: 16:23 Chief Complaint: Left flank pain History of Present Illness: 55-year-old male with a past medical history of alcohol abuse, hypertension, liver disease, hypokalemia presents from home status post fall down 4 steps while he was after he was drinking alcohol. He fell into the corner of a table. He presented to the ER today and was found to have fractures of his left seventh, eighth, ninth and 10th ribs, along with a small left pneumothorax and small left pleural effusion. Surgery has been consulted. His last drink was this morning according to his . CT abdomen pelvis showed no acute posttraumatic intra-abdominal or pelvic pathology. He is being admitted for observation and management of his pain. We will repeat chest x-ray in the mo rning. Medical History (Last Reviewed 08/31/20 @ 14:38 by Marcial Arroyo MD) HTN (hypertension) Hypokalemia Liver disease Surgical History: Surgical History (Last Reviewed 08/31/20 @ 14:38 by Marcial Arroyo MD) History of esophagogastroduodenoscopy Family History: Family History (Last Reviewed 08/31/20 @ 14:38 by Marcial Arroyo MD) Mother Breast cancer Father Hypertension Social History: (Last Reviewed 08/31/20 @ 14:38 by Marcial Arroyo MD) Tobacco: Smoking Status: Current every day smoker tobacco type: cigarettes Smoking cigarettes per day: 10 Alcohol: alcohol intake: current Alcohol type: hard liquor alcohol intake frequency: 3 or more drinks per day Substance Use: substance use type: does not use Review Of Systems (GEN) - Review of Systems Generalized/Overall Review: Absent: Fever Respiratory: Absent: Shortness of Breath Cardiac: Absent: Chest Pain Abdominal: Absent: Abdominal Pain Musculoskeletal: Present: Other - Left flank pain Misc: All systems neg except as marked Immunizations: IMMUNIZATION HX Immunizations Up to Date Yes History of Influenza Vaccine No Hx Pneumococcal Vaccination No Allergies/Adverse Reactions: Allergies Allergy/AdvReac Type Severity Reaction Status Date / Time amlodipine Allergy Severe Verified 08/31/20 12:37 Home Medications: HOME MEDICATIONS Omeprazole 20 mg PO DAILY 08/31/20 [Last Taken Unknown] Exam - Exam Vital Signs: Vital Signs - Last Taken Temp 36.5 C 08/31/20 16:44 Pulse 86 08/31/20 16:44 Resp 20 08/31/20 16:44 BP 151/88 H 08/31/20 16:44 Pulse Ox 96 08/31/20 16:44 Constitutional: Present: Alert, Cooperative, Well developed, Well nourished, No distress, Middle aged ENT Exam: Present: hearing grossly normal Eye Exam: bilateral eye: normal inspection, PERRL Neck: Present: non-tender, supple. Absent: lymphadenopathy (R), lymphadenopathy (L) Back Exam: Present: normal inspection, no vertebral tenderness, other - Tenderness of left flank Respiratory: Present: lungs clear, no respiratory distress, no accessory muscle use, No wheezing. Absent: crackles, rhonchi Cardiovascular/Chest: Present: normal peripheral pulses, regular rate, rhythm, no murmur Peripheral Pulses: dorsalis-pedis (R): 1+, dorsalis-pedis (L): 1+ Abdomen: Present: Normal bowel sounds, soft, nontender Extremity: Present: no pedal edema Skin Exam: Present: normal color, warm/dry Neurologic: Present: alert, normal mood/affect Appearance: Present: appropriate appearance, appropriate insight Eye contact: Present: cooperative Thoughts: Present: normal mood /affect Diagnostic Studies: Abnormal Lab Results 08/31/20 08/31/20 08/31/20 Range/Units 13:51 13:51 13:51 RBC 4.12 L (4.7-6.0) M/mm3 Hgb 9.9 L (13.5-18.0) gm/dL Hct 32.5 L (42.0-52.0) % MCH 24.0 L (27-31) pg MCHC 30.5 L (32-36) g/dl RDW 21.9 H (11.5-14.0) % Neutrophils % (42-75.0) % Lymphocytes % 17.0 L (20-51) % Neutrophils # 6.9 H (1.3-6.0) K/mm3 Lymphocytes # (1.5-3.5) k/mm3 Sodium 144 H (132-142) mmol/L Plasma Sodium 143 H (130-142) mmol/L Potassium 3.3 L (3.4-4.6) mmol/L Carbon Dioxide 17.4 L (24-32.6) mmol/L Anion Gap 24.9 H (6.8-13.8) mmol/L BUN/Creatinine Ratio 27.8 H (9.0-21.6) Random Glucose 54 L (70-110) mg/dL AST 49 H (0-48) U/L Albumin (3.4-5.0) gm/dl Ethyl Alcohol 170.0 H (0.0-10.0) mg/dL 08/31/20 08/31/20 Range/Units 17:00 17:00 RBC 3.92 L (4.7-6.0) M/mm3 Hgb 9.4 L (13.5-18.0) gm/dL Hct 31.1 L (42.0-52.0) % MCH 24.0 L (27-31) pg MCHC 30.2 L (32-36) g/dl RDW 21.7 H (11.5-14.0) % Neutrophils % 85.7 H (42-75.0) % Lymphocytes % 8.4 L (20-51) % Neutrophils # 6.2 H (1.3-6.0) K/mm3 Lymphocytes # 0.60 L (1.5-3.5) k/mm3 Sodium (132-142) mmol/L Plasma Sodium (130-142) mmol/L Potassium (3.4-4.6) mmol/L Carbon Dioxide 15.6 L (24-32.6) mmol/L Anion Gap 24.8 H (6.8-13.8) mmol/L BUN/Creatinine Ratio 24.4 H (9.0-21.6) Random Glucose (70-110) mg/dL AST 50 H (0-48) U/L Albumin 3.2 L (3.4-5.0) gm/dl Ethyl Alcohol (0.0-10.0) mg/dL Laboratory Results WBC 7.2 K/mm3 (4.0-10.5) D 08/31/20 17:00 RBC 3.92 M/mm3 (4.7-6.0) L 08/31/20 17:00 Hgb 9.4 gm/dL (13.5-18.0) L 08/31/20 17:00 Hct 31.1 % (42.0-52.0) L 08/31/20 17:00 MCV 79.3 fl (78-100) 08/31/20 17:00 MCH 24.0 pg (27-31) L 08/31/20 17:00 MCHC 30.2 g/dl (32-36) L 08/31/20 17:00 RDW 21.7 % (11.5-14.0) H 08/31/20 17:00 Plt Count 205 K/mm3 (150-450) 08/31/20 17:00 MPV 9.6 fl (8-11.3) 08/31/20 17:00 Immature Gran % (Auto) 0.30 % (0.001-0.429) 08/31/20 17: Immature Gran # (Auto) 0.02 K/mm3 (0.000-0.0310) 08/31/20 17:00 Neutrophils % 85.7 % (42-75.0) H 08/31/20 17:00 Lymphocytes % 8.4 % (20-51) L 08/31/20 17:00 Monocytes % 5.0 % (0.0-9) 08/31/20 17:00 Eosinophils % 0.0 % (0.0-3.0) 08/31/20 17:00 Basophils % 0.6 % (0.0-1.0) 08/31/20 17:00 Nucleated RBC % 0.0 k/mm3 (0-1) 08/31/20 17:00 Neutrophils # 6.2 K/mm3 (1.3-6.0) H 08/31/20 17:00 Lymphocytes # 0.60 k/mm3 (1.5-3.5) L 08/31/20 17:00 Monocytes # 0.4 k/mm3 (0.0-1.0) 08/31/20 17:00 Eosinophils # 0.0 k/mm3 (0.0-0.7) 08/31/20 17:00 Absolute Basophils 0.0 k/mm3 (0.0-0.1) 08/31/20 17:00 Sodium 142 mmol/L (132-142) 08/31/20 17:00 Plasma Sodium 142 mmol/L (130-142) 08/31/20 17:00 Potassium 3.4 mmol/L (3.4-4.6) 08/31/20 17:00 Chloride 105 mmol/L (97-106) 08/31/20 17:00 Carbon Dioxide 15.6 mmol/L (24-32.6) L 08/31/20 17:00 Anion Gap 24.8 mmol/L (6.8-13.8) H 08/31/20 17:00 BUN 20 mg/dL (6-23) 08/31/20 17:00 Creatinine 0.82 mg/dL (0.4-1.4) 08/31/20 17:00 Est GFR (Non-Af Amer) 103 mL/min (60-130) 08/31/20 17:00 BUN/Creatinine Ratio 24.4 (9.0-21.6) H 08/31/20 17:00 Random Glucose 85 mg/dL (70-110) D 08/31/20 17:00 Calcium 8.5 mg/dL (7.9-10.9) 08/31/20 17:00 Calcium Adj for Albumin 8.8 mg/dL (8.4-10.2) 08/31/20 17:00 Total Bilirubin 0.6 mg/dL (0.0-1.1) 08/31/20 17:00 AST 50 U/L (0-48) H 08/31/20 17:00 ALT 26 U/L (19-67) 08/31/20 17:00 Alkaline Phosphatase 132 U/L (50-170) 08/31/20 17:00 Total Protein 6.9 gm/dL (6.2-8.2) 08/31/20 17:00 Albumin 3.2 gm/dl (3.4-5.0) L 08/31/20 17:00 Ethyl Alcohol 170.0 mg/dL (0.0-10.0) H 08/31/20 13:51 SARS-CoV-2 (PCR) Not detected (NotDetected) 08/31/20 14:14 Assessment/Plan - Narrative Narrative: 55-year-old male with a past medical history of alcohol abuse, hypertension, liver disease, hypokalemia presents from home status post fall down 4 steps while he was after he was drinking alcohol. He fell into the corner of a table. He presented to the ER today and was found to have fractures of his left seventh, eighth, ninth and 10th ribs, along with a small left pneumothorax and small left pleural effusion. Surgery has been consulted. His last drink was this morning according to his . CT abdomen pelvis showed no acute posttraumatic intra-abdominal or pelvic pathology. He is being admitted for observation and management of his pain. We will repeat chest x-ray in the morning. Plan #1 continue with Percocet for pain management #2 CBC and CMP in the morning #3 obtain chest x-ray in the morning to evaluate the left pneumothorax #4 surgery is on board #5 Start [facility] protocol and monitor for alcohol withdrawal - Assessment/Plan (1) Rib fractures Problem: Acute (2) Pneumothorax Problem: Acute (3) History of alcoholism Problem: Resolved (4) Alcoholic liver disease Problem: Acute (5) Intractable pain Problem: Acute (6) Pulmonary contusion Problem: Acute
[2020-09-01] MEDS: LORazepam 1 MG TABLET PO PRN ×2 (00:03→11:07)
[2020-09-01 06:39] LABS: Hematocrit 31.1 % (42.0-52.0); Hemoglobin 9.6 gm/dL (13.5-18.0); Mean Corpuscular Hemoglobin 23.8 pg (27-31); Mean Corpuscular Hgb Conc 30.9 g/dl (32-36); Mean Platelet Volume 10.3 fl (8-11.3); Neutrophil # 4.3 K/mm3 (1.3-6.0); Platelet Count 195 K/mm3 (150-450); Red Blood Count 4.04 M/mm3 (4.7-6.0); Red Cell Distribution Width 21.4 % (11.5-14.0); White Blood Count 5.8 K/mm3 (4.0-10.5)
[2020-09-01 06:53] LABS: Albumin * 3.2 gm/dl (3.4-5.0); Anion Gap 13.9 mmol/L (6.8-13.8); BUN/Creatinine Ratio 13.9 (9.0-21.6); Bilirubin, Total 0.7 mg/dL (0.0-1.1); Ca. Corrected For Albumin 8.7 mg/dL (8.4-10.2); Calcium * 8.4 mg/dL (7.9-10.9); Potassium 2.9 mmol/L (3.4-4.6); Total Protein 7.1 gm/dL (6.2-8.2)
[2020-09-01] MEDS ORDERED: PANTOPRAZOLE SODIUM 20 MG TABLET.DR PO SCH (07:00)
--- NOTE | 2020-09-01 08:44 | PN ---
Dictated Progress Note - Date and Time Seen: Date: 09/01/20 Time: 08:41 - Progress Note Narrative: Vital Signs - Last Taken Temp 37.3 C 09/01/20 07:33 Pulse 94 09/01/20 07:33 Resp 16 09/01/20 07:33 BP 174/110 H 09/01/20 07:33 Pulse Ox 96 09/01/20 07:33 Abnormal/Pending Laboratory Last 24 HRS 09/01/20 09/01/20 08/31/20 06:32 06:32 17:00 RBC 4.04 L Hgb 9.6 L Hct 31.1 L MCV 77.0 L MCH 23.8 L MCHC 30.9 L RDW 21.4 H Neutrophils % Lymphocytes % 15.0 L Monocytes % 9.2 H Neutrophils # Lymphocytes # 0.86 L Sodium Plasma Sodium Potassium 2.9 L Carbon Dioxide 15.6 L Anion Gap 13.9 H 24.8 H BUN/Creatinine Ratio 24.4 H Random Glucose AST 50 H 50 H Albumin 3.2 L 3.2 L Ethyl Alcohol 08/31/20 08/31/20 08/31/20 17:00 13:51 13:51 RBC 3.92 L Hgb 9.4 L Hct 31.1 L MCV MCH 24.0 L MCHC 30.2 L RDW 21.7 H Neutrophils % 85.7 H Lymphocytes % 8.4 L Monocytes % Neutrophils # 6.2 H Lymphocytes # 0.60 L Sodium 144 H Plasma Sodium 143 H Potassium 3.3 L Carbon Dioxide 17.4 L Anion Gap 24.9 H BUN/Creatinine Ratio 27.8 H Random Glucose 54 L AST 49 H Albumin Ethyl Alcohol 170.0 H 08/31/20 13:51 RBC 4.12 L Hgb 9.9 L Hct 32.5 L MCV MCH 24.0 L MCHC 30.5 L RDW 21.9 H Neutrophils % Lymphocytes % 17.0 L Monocytes % Neutrophils # 6.9 H Lymphocytes # Sodium Plasma Sodium Potassium Carbon Dioxide Anion Gap BUN/Creatinine Ratio Random Glucose AST Albumin Ethyl Alcohol He was intoxicated on the night of 08/30/2020. He fell backwards at home down 4 steps and struck his left lower chest on the corner of a table. He was evaluated in the emergency room and had found to have fractures of ribs 7 through 10 on the left and a small apical pneumothorax. He was admitted for observation and pain control His vital signs and SaO2 on room air have remained stable--- he is a little hypertensive. His pain was controlled with p.o. medication. He has not complained of shortness of breath. Chest x-ray this morning shows a stable apical left pneumothorax. Recommendation: The pneumothorax will likely resolve. If pain control is adequate he can be discharged
[2020-09-01] MEDS: oxyCODONE HCL/ACETAMINOPHEN 1 TAB TABLET PO PRN (08:53)
[2020-09-01] MEDS ORDERED: POTASSIUM BICARBONATE/CIT AC 25 MEQ TABLET.EFF PO ONE (09:09)
[2020-09-01] MEDS ORDERED: LISINOPRIL 20 MG TABLET PO SCH (09:15)
[2020-09-01] MEDS: HYDROCHLOROTHIAZIDE 25 MG TABLET PO SCH ×2 (10:45→10:58)
[2020-09-01] MEDS ORDERED: LISINOPRIL 20 MG TABLET PO ONE (12:37)
--- NOTE | 2020-09-01 15:18 | DS ---
(1) Rib fractures Problem: Acute (2) Pneumothorax Problem: Acute (3) History of alcoholism Problem: Resolved (4) Alcoholic liver disease Problem: Acute (5) Intractable pain Problem: Acute (6) Pulmonary contusion Problem: Acute Hospital Course: 55-year-old male with a past medical history of alcohol abuse, hypertension, liver disease, hypokalemia presents from home status post fall down 4 steps while he was after he was drinking alcohol. He fell into the corner of a table. He presented to the ER today and was found to have fractures of his left seventh, eighth, ninth and 10th ribs, along with a small left pneumothorax and small left pleural effusion. Surgery has been consulted. His last drink was this morning according to his . CT abdomen pelvis showed no acute posttraumatic intra-abdominal or pelvic pathology. He is being admitted for observation and management of his pain. Repeat chest x-ray showed improvement of the left pneumothorax. Patient did develop hypotension while hospitalized. I started him on lisinopril and hydrochlorothiazide with good response. Pain is well controlled with Percocet. I will discharge him on these two blood pressure medication and send him with Percocet for pain. He is stable to be discharged home today. Follow-up with his primary care provider in 1 to 2 days and discharged Procedures Performed: none Results and Findings: Lab Pending Results 08/31/20 13:51: WBC 9.3, RBC 4.12 L, Hgb 9.9 L, Hct 32.5 L, MCV 78.9, MCH 24.0 L, MCHC 30.5 L, RDW 21.9 H, Plt Count 268, MPV 9.3, Immature Gran % (Auto) 0.30, Immature Gran # (Auto) 0.03, Neutrophils % 74.4, Lymphocytes % 17.0 L, Monocytes % 6.6, Eosinophils % 0.9, Basophils % 0.8, Nucleated RBC % 0.0, Neutrophils # 6.9 H, Lymphocytes # 1.58, Monocytes # 0.6, Eosinophils # 0.1, Absolute Basophils 0.1 08/31/20 13:51: Sodium 144 H, Plasma Sodium 143 H, Potassium 3.3 L, Chloride 105, Carbon Dioxide 17.4 L, Anion Gap 24.9 H, BUN 20 D, Creatinine 0.72, Est GFR (Non-Af Amer) 120, BUN/Creatinine Ratio 27.8 H, Random Glucose 54 L, Calcium 9.2, Calcium Adj for Albumin 9.3, Total Bilirubin 0.6, AST 49 H, ALT 29, Alkaline Phosphatase 135, Total Protein 7.5, Albumin 3.5 08/31/20 13:51: Ethyl Alcohol 170.0 H 08/31/20 14:14: SARS-CoV-2 (PCR) Not detected 08/31/20 17:00: WBC 7.2 D, RBC 3.92 L, Hgb 9.4 L, Hct 31.1 L, MCV 79.3, MCH 24.0 L, MCHC 30.2 L, RDW 21.7 H, Plt Count 205, MPV 9.6, Immature Gran % (Auto) 0.30, Immature Gran # (Auto) 0.02, Neutrophils % 85.7 H, Lymphocytes % 8.4 L, Monocytes % 5.0, Eosinophils % 0.0, Basophils % 0.6, Nucleated RBC % 0.0, Neutrophils # 6.2 H, Lymphocytes # 0.60 L, Monocytes # 0.4, Eosinophils # 0.0, Absolute Basophils 0.0 08/31/20 17:00: Sodium 142, Plasma Sodium 142, Potassium 3.4, Chloride 105, Carbon Dioxide 15.6 L, Anion Gap 24.8 H, BUN 20, Creatinine 0.82, Est GFR (Non- Af Amer) 103, BUN/Creatinine Ratio 24.4 H, Random Glucose 85 D, Calcium 8.5, Calcium Adj for Albumin 8.8, Total Bilirubin 0.6, AST 50 H, ALT 26, Alkaline Phosphatase 132, Total Protein 6.9, Albumin 3.2 L 09/01/20 06:32: WBC 5.8, RBC 4.04 L, Hgb 9.6 L, Hct 31.1 L, MCV 77.0 L, MCH 23.8 L, MCHC 30.9 L, RDW 21.4 H, Plt Count 195, MPV 10.3, Immature Gran % (Auto) 0.30, Immature Gran # (Auto) 0.02, Neutrophils % 74.0, Lymphocytes % 15.0 L, Monocytes % 9.2 H, Eosinophils % 1.0, Basophils % 0.5, Nucleated RBC % 0.0, Neutrophils # 4.3, Lymphocytes # 0.86 L, Monocytes # 0.5, Eosinophils # 0.1, Absolute Basophils 0.0 09/01/20 06:32: Sodium 135, Plasma Sodium 135, Potassium 2.9 L, Chloride 99, Carbon Dioxide 25.0, Anion Gap 13.9 H, BUN 10, Creatinine 0.72, Est GFR (Non-Af Amer) 120, BUN/Creatinine Ratio 13.9, Random Glucose 96, Calcium 8.4, Calcium Adj for Albumin 8.7, Total Bilirubin 0.7, AST 50 H, ALT 24, Alkaline Phosphatase 135, Total Protein 7.1, Albumin 3.2 L Discharge Location: Home Disposition: Home self-care Condition: Fair Discharge Activity: Activity as tolerated Discharge Diet: Low fat/chol Referrals: Kj Lynch DO [Primary Care Provider] - Prescriptions (Any new or edited meds): Hydrochlorothiazide [Hydrodiuril] 25 mg PO DAILY@1100 #30 tab Transmission Status: Pending to [facility] oxyCODONE HCL/ACETAMINOPHEN [Percocet 5 MG/325 MG] 1 tab PO Q4H PRN #42 tab PRN Reason: Moderate Pain (Pain Scale 4-6) Transmission Status: Sent to [facility] Lisinopril [Zestril] 40 mg PO DAILY #30 tab Transmission Status: Pending to [facility] Complete Home Medications List: Complete Home Medication List: Omeprazole 20 mg PO DAILY 08/31/20 Hydrochlorothiazide [Hydrodiuril] 25 mg PO DAILY@1100 #30 tab 09/01/20 Lisinopril [Zestril] 40 mg PO DAILY #30 tab 09/01/20 oxyCODONE HCL/ACETAMINOPHEN [Percocet 5 MG/325 MG] 1 tab PO Q4H PRN #42 tab 09/01/20 Forms: Patient Portal Registration
[2020-09-01 17:22] VITALS: BP 146/90
[2020-09-02] MEDS ORDERED: LISINOPRIL 40 MG TABLET PO SCH (09:00)
== END 2020-09-01 17:15 | disposition home or self-care (01) ==
LOC: ER 12:23 → MS 12:23
PROVIDERS: ADMIT Internal Medicine; ATTEND Internal Medicine